=== PATIENT | female | born 1950 | race Caucasian/White ===

== ENCOUNTER → 2018-05-07 09:42 | Outpatient (CLI) | payer MEDICARE, SELFPAY ==
--- NOTE | 2018-05-07 09:48 | CDU_ITS ---
Reason For Study: Carotid bruit Rt. Velocities/BP Lt. Velocities/BP Prox CCA 123.0/17.3 cm/sec. Prox CCA 105.0/16.4 cm/sec. Mid CCA 124.0/18.9 cm/sec. Mid CCA 111.0/21.7 cm/sec. Dist CCA 102.0/23.6 cm/sec. Dist CCA 101.0/21.7 cm/sec. Prox ICA 61.6/14.1 cm/sec. Prox ICA 76.0/20.4 cm/sec. Mid ICA 76.8/19.0 cm/sec. Mid ICA 94.4/23.1 cm/sec. Dist ICA 71.9/19.7 cm/sec. Dist ICA 98.3/28.4 cm/sec. Rt. ICA/CCA = .62. Lt. ICA/CCA = .89. Prox ECA 81.4/7.9 cm/sec. Prox ECA 78.3/9.5 cm/sec. Rt. Vert. 52.8/14.7 cm/sec. Lt. Vert. 47.9/6.3 cm/sec. Right Extracranial There is intimal thickening but no significant atherosclerotic plaque noted in the right common carotid artery. There is heterogeneous, irregular atherosclerotic plaque noted in the right internal carotid artery. There is no significant atherosclerotic plaque noted in the right external carotid artery. Antegrade flow is noted in the right vertebral artery. Left Extracranial There is homogeneous, smooth atherosclerotic plaque noted in the left common carotid artery. There is homogeneous, smooth atherosclerotic plaque noted in the left internal carotid artery. There is no significant atherosclerotic plaque noted in the left external carotid artery. Antegrade flow is noted in the left vertebral artery. Procedure Carotid Duplex [id number]. Exam performed in department. Interpretation Summary Mild (<50%) stenosis right extracranial internal carotid. Mild (<50%) stenosis left extracranial internal carotid. Flow within the vertebral arteries is antegrade bilaterally. Ordering Physician: MARINA CHEN Referring Physician: Marina Chen Performed By: Raysa Tristan RVT
== END ==
LOC: CVS 09:46
PROVIDERS: Family Provider Family Medicine; PCP Family Medicine; Visit Provider Family Medicine
DX: R09.89 Other specified symptoms and signs involving the circulatory and respiratory systems (principal)
CPT/HCPCS: 93880

== ENCOUNTER → 2018-11-25 08:56 | Outpatient (CLI) | payer MEDICARE, SELFPAY ==
--- NOTE | 2018-11-25 11:10 | NEURO ---
NCS and/or EMG Patient Report Ordering Doctor: Mick Leggett DATE OF SERVICE: 11/25/18 David Botello is a 68-year-old female presents for electrodiagnostic testing of the lower limbs. She has numbness and tingling in both legs with intermittent weakness. Electrodiagnostic findings: Peroneal motor nerve demonstrates normal distal latency, amplitude and conduction velocity bilaterally. Normal tibial motor response bilaterally. Normal peroneal tibial F wave. H reflex is borderline prolonged. Borderline prolonged sural latency bilaterally. Prolonged superficial peroneal latency bilaterally. Plantar response is within normal limits. Electrodiagnostic impression: This is an abnormal study in the lower limbs. 1. Electrodiagnostic findings consistent with early polyneuropathy, with primary involvement of sensory nerve fibers. This is likely secondary to diabetes. 2. No electrodiagnostic evidence is noted for lumbosacral radiculopathy. If there are any further questions, please do not hesitate to contact me
== END ==
PROVIDERS: Family Provider Family Medicine; PCP Family Medicine; Referring Provider Family Medicine; Visit Provider Family Medicine
DX: M51.16 Intervertebral disc disorders with radiculopathy, lumbar region (principal)
CPT/HCPCS: 95886; 95912

== ENCOUNTER 2019-02-19 21:41 | Inpatient (IN) | payer MEDICARE, SELFPAY ==
[2019-02-19 21:42] VITALS: BP 146/87; PULSE 74; RESP 17; TEMP 36.9; O2SAT 97; BMI 28.9
--- NOTE | 2019-02-19 21:42 | ED.RN ---
RN CALLED FOR EKG, NO OLD EKGS IN MUSE
--- NOTE | 2019-02-19 21:53 | EKG12_ITS ---
Test Reason : REPEAT CP Blood Pressure : / mmHG Vent. Rate : 064 BPM Atrial Rate : 064 BPM P-R Int : 196 ms QRS Dur : 088 ms QT Int : 438 ms P-R-T Axes : 064 018 086 degrees QTc Int : 451 ms Normal sinus rhythm Nonspecific ST abnormality Abnormal ECG Confirmed by CHACHO LOMAS ([id number]), purchase request editor RHONDA JONES ([id number]) on 02/24/2019 11:35:26 AM Referred By: Rene Turpin Confirmed By:INESSA LOMAS
[2019-02-19 22:07] VITALS: O2SAT 98
[2019-02-19 22:21] LABS: Absolute Neutrophil Count 3.8 X10^3/uL (2.0-7.7); Basophil# 0.06 X10^3/uL; Basophil% 0.8 % (0-1); Eosinophils% 5.3 % (0-5); Hemoglobin 11.9 g/dl (12.0-15.0); Lymphocyte % 34.4 % (19-41); Mean Corp Hgb Conc 33.1 g/gl (32-36); Mean Corpuscular Volume 81.8 fL (81-99); Mean Platelet Vol. 11.2 fl (6.2-12.0); Monocyte% 9.3 % (0-10); Neutrophil # 3.79 X10^3/uL (2.7-7.7); Neutrophil % 50.1 % (47-70); Platelet Count 165 K/mm3 (150-450); RBC Distribution Width CV 13.9 % (11.6-14.6); RBC Distribution Width SD 41.8 fl (35.1-43.9); White Blood Count 7.6 K/mm3 (4.4-11.0)
[2019-02-19 22:22] LABS: POSITIVE COUNT NO; POSITIVE DIFFERENTIAL NO; POSITIVE MORPHOLOGY NO
[2019-02-19 22:32] LABS: Anion Gap 9 (5-15); BUN 16 mg/dL (7-18); BUN/Creat Ratio 19.5 RATIO (10-20); Calcium,Total 8.9 mg/dL (8.5-10.1); Chloride 111 mmol/L (98-107); Creatinine, Serum 0.82 mg/dL (0.55-1.02); EST Glomerular Filtration Rate 73 mL/min (>60); Est Glom Filt Rate - Afr Amer 89 mL/min (>60); Estimated Creatinine Clearance 48.86 ml/min; Glucose 186 mg/dL (74-106); Sodium Level 145 mmol/L (136-145)
[2019-02-19 22:45] VITALS: BP 156/60; PULSE 64; RESP 18; O2SAT 96
--- NOTE | 2019-02-19 22:57 | RAD_ITS ---
STUDY: X-RAY CHEST REASON FOR EXAM: Female, 69 years old. Chest heaviness and tightness TECHNIQUE: Single AP portable view of the chest. COMPARISON: None. FINDINGS: quality assurance monitor body leads are present. The lungs are clear and expanded. There is no demonstrated pleural abnormality. Normal size heart. Normal mediastinum and mark. Normal visualized pulmonary arteries. There are calcified plaques of the aortic arch. There are degenerative changes of the thoracic spine. There is a mild thoracolumbar dextroscoliosis. Normal visualized ribs, clavicles, and shoulders. There is no demonstrated abnormality of the visualized soft tissue structures of the upper abdomen. RAD/Chest 1 View (Portable) IMPRESSION: Calcified plaques of the aortic arch. Degenerative changes of the thoracic spine. Thoracolumbar dextroscoliosis. No acute cardiopulmonary disease process is seen. Electronically Signed: Young Ashley MD at 22:29 EDT , Service support ,
--- NOTE | 2019-02-19 22:57 | EKG12_ITS ---
Test Reason : CP Blood Pressure : / mmHG Vent. Rate : 065 BPM Atrial Rate : 065 BPM P-R Int : 194 ms QRS Dur : 088 ms QT Int : 442 ms P-R-T Axes : 057 012 079 degrees QTc Int : 459 ms Normal sinus rhythm ST & T wave abnormality, consider lateral ischemia Abnormal ECG Confirmed by CHACHO LOMAS ([id number]), editor in chief newspaper RHONDA JONES ([id number]) on 02/24/2019 11:35:43 AM Referred By: Rene Turpin Confirmed By:INESSA LOMAS
[2019-02-19 22:59] VITALS: BP 156/105; PULSE 65
[2019-02-19] MEDS: Enoxaparin 80 MG/0.8 ML Syringe 70 MG SC (22:59)
[2019-02-19] MEDS: Nitroglycerin (INPATIENT USE) 0.4 MG TAB.SUBL SUBLINGUAL (22:59)
[2019-02-19 23:01] VITALS: BP 178/76; PULSE 65; RESP 18; O2SAT 95
--- NOTE | 2019-02-19 23:13 | PCM.HP.STD ---
Problem List (1) Hypertension Status: Chronic (2) Diabetes mellitus type 2 Status: Chronic (3) Dyslipidemia Status: Chronic (4) GERD Status: Chronic (5) Chronic pain Status: Chronic (6) Non-STEMI (non-ST elevated myocardial infarction) Status: Acute History of Present Illness Date of Admission: 02/19/19 Chief Complaint: Chest pain The patient is a 69 year old F with history of hypertension, diabetes mellitus type 2 and dyslipidemia but no previous IA came to ED with shortness of breath on minimal exertion and even dyspnea on rest for last 3 days along with chest pain. Describes chest pain midsternal with radiation to both arm with feeling of numbness and headache. She is also diaphoretic and nauseated. Chest pain and shortness of breath got more persistent today. In ED, heart rate is in 60s and hemodynamically stable. EMS EKG shows normal sinus rhythm at 67 bpm. There is no need for current ST-T ischemic change in EKG in the ED. Troponin 0 0.276. She was started on aspirin, nitroglycerin and Lovenox in the ED. [] Past Medical History Past Medical History (Chronic Problems): Chronic Problems Hypertension (Chronic) Diabetes mellitus type 2 (Chronic) Dyslipidemia (Chronic) GERD (Chronic) Chronic pain (Chronic) Allergies lisinopril Allergy (Verified 02/19/19 21:45) Other cough, throat tightness Sulfa (Sulfonamide Antibiotics) Allergy (Verified 02/19/19 21:45) Rash Home Medications: Ambulatory Orders Medication Instructions Recorded Aspirin 81 mg PO DAILY 02/19/19 Atorvastatin Calcium 20 mg PO DAILY 02/19/19 Glipizide 10 mg PO BID 02/19/19 Insulin NPH Human Isophane 5 unit SC BREAKFAST 02/19/19 [Novolin N] Insulin NPH Human Isophane 15 unit SC DINNER 02/19/19 [Novolin N] Metformin HCl 1,000 mg PO BID 02/19/19 Metoprolol Tartrate [Lopressor 25 mg PO BID 02/19/19 (beta josh)] Multiple Vitamin 1 tab PO DAILY 02/19/19 Nabumetone 750 mg PO BID 02/19/19 Omeprazole 40 mg PO DAILY 02/19/19 Oxybutynin [Ditropan] 2.5 mg PO BID 02/19/19 Tizanidine HCl 2 mg PO DAILY 02/19/19 Smoking Status: Never smoker - *Family History Paternal History Items: Heart Disease - Father had IA at age of 85. Has multiple stents. Review of Systems Constitutional: Denies: Chills, Fever, Weight Change HEENT: Denies: Head Aches, Sinus Congestion, Sinus Drainage Cardiovascular: Reports: Chest Pressure - Chest pain feels like a pressure. Denies: Chest Pain, Palpitations Respiratory: Reports: Shortness of Breath, Shortness of breath at rest, Shortness of breath upon exertion. Denies: Cough, Sputum production Gastrointestinal: Reports: Nausea. Denies: Abdominal Pain, Vomiting Genitourinary: Denies: Dysuria, Frequency Musculoskeletal: Reports: Back Pain, Joint Pain. Denies: Joint Tenderness Skin: Denies: Rash, Wounds Neurological: Denies: Numbness, Tingling, Focal weakness Psychiatric: Denies: Anxiety, Depression, Homicidal Ideations, Suicidal Ideations Hematologic/ Lymphatic: Denies: Easy Bruising, Easy Bleeding VTE Information - Inpt Only VTE Present on Admission: No VTE Mechan Device Prophylaxis: None Reason prophylaxis not ordered:: Procedure Not Indicated - Patient is on therapeutic Lovenox ACS Patient Problems: Active and Suspected Problems Non-STEMI (non-ST elevated myocardial infarction) (Acute) - Physical Exam General: Alert, Oriented x3, Cooperative HEENT: Atraumatic, PERRLA, EOMI, Normocephalic Neck: Supple, No JVD, Negative Carotid Bruits Lungs: Clear to auscultation, Normal air movement, No rhonchi, No wheeze, No rales Cardiovascular: Regular rate, Regular Rhythm, Normal S1, Normal S2, No murmurs Abdomen: Bowel Sounds Present, Soft, Non Tender, Non-Distended Extremities: No edema, Capillary Refill Less than 3 Seconds Skin: No rashes, No breakdown Musculoskeletal: No Tenderness to Palpation of Joints or Extremities, Arthritic Changes, Tenderness Lymphatic: No Cervical, Supraclavicular, or Inguinal Adenopathy Neurological: Cranial nerves II-XII grossly intact, Deep Tendon Reflexes 2+/4 and Symmetrical, Neuro grossly intact Psych/Mental Status: Normal Affect, Appropriate Vital Signs Temp Pulse Resp BP Pulse Ox 98.4 F 65 18 178/76 H 95 02/19/19 21:42 02/19/19 23:01 02/19/19 23:01 02/19/19 23:01 02/19/19 23:01 Oxygen Delivery Method Room Air Weight: 153 lb 3.54 oz Body Mass Index (BMI) 28.9 Laboratory Tests Past 24 Hrs 02/19/19 02/19/19 22:00 22:00 WBC 7.6 RBC 4.40 Hgb 11.9 L Hct 36.0 L MCV 81.8 MCH 27.0 MCHC 33.1 RDW 13.9 RDW Differential 41.8 Plt Count 165 MPV 11.2 Immature Gran % (Auto) 0.100 Neut % (Auto) 50.1 Lymph % (Auto) 34.4 [place] % (Auto) 9.3 Eos % (Auto) 5.3 H Baso % (Auto) 0.8 Absolute Neuts (auto) 3.8 Absolute Lymphs (auto) 2.60 Total Counted Not Reportable Sodium 145 Potassium 4.0 Chloride 111 H Carbon Dioxide 25.0 Anion Gap 9 BUN 16 Creatinine 0.82 Estim Creat Clear Calc 48.86 Est GFR (MDRD) Af Amer 89 Est GFR (MDRD) Non-Af 73 BUN/Creatinine Ratio 19.5 Glucose 186 H Calcium 8.9 Troponin I 0.276 H Assessment/Plan All Active Problems Non-STEMI (non-ST elevated myocardial infarction) (Acute) The patient is a 69 year old F with history of hypertension, diabetes mellitus type 2 and dyslipidemia but no previous IA came to ED with shortness of breath on minimal exertion and even dyspnea on rest for last 3 days along with chest pain. Describes chest pain midsternal with radiation to both arm with feeling of numbness and headache. She is also diaphoretic and nauseated. Chest pain and shortness of breath got more persistent today. In ED, heart rate is in 60s and hemodynamically stable. EMS EKG shows normal sinus rhythm at 67 bpm. There is no need for current ST-T ischemic change in EKG in the ED. Troponin 0 0.276. She was started on aspirin, nitroglycerin and Lovenox in the ED. 1. Non-STEMI: Patient has typical anginal symptoms. Started with loading dose of Plavix, baby aspirin and Lovenox 1 mg/kg body weight twice daily. Pharmacy Intake Coordinator Dr. Gonzalez informed and consulted. Coreg 6.25 mg twice daily. Atorvastatin and nitroglycerin ointment. Patient is allergic to lisinopril. patient had brief history of flutter waves possible one-time transient A. fib/flutter. Patient is not on anticoagulant but on metoprolol. [] 2. Diabetes mellitus type 2: On Accu-Chek before meals and at bedtime and cover with Humalog sliding scale insulin. Continue home dose of NPH insulin and glipizide. A1c tomorrow a.m. 3. Hypertension and dyslipidemia: Fasting profile tomorrow a.m. TSH tomorrow a.m.: 4. Chronic back pain, urinary incontinence: Patient is on NSAIDs which is discontinued. Continue Zanaflex and oxybutynin. DVT prophylaxis: Patient on therapeutic dose of Lovenox. Code Visit Inpatient E&M: 89032 Init Hosp L3
--- NOTE | 2019-02-19 23:16 | ED.DCSUM_ITS ---
- ER Visit Summary Date of Service: 02/19/19 Chief Complaint: [Chest pain] History of Present Illness: The patient is a 69 F [presents the emergency department chest pain that started 3 days ago. Patient states that she is had intermittent discomfort especially with activity and exertion. Patient states t hat symptoms typically improve with rest. Currently rates pain a 4 out of 10. Patient called the squad when her pain would not go away since about noon today. Patient was given aspirin and nitroglycerin tablet which seemed to help ease her pain. Patient describes the pain radiating into both arms at times. Patient describes diaphoresis and nausea. Patient complains of exertional dyspnea. Patient has history of hypertension, diabetes, and high cholesterol. She has no cardiac history. Last stress test was more than 10 years ago.] Physical Examination: [HEENT-PERRLA, EOMI. Cranial nerves II through XII grossly intact. TMs clear. Mucous membranes moist. No adenopathy. Cardiovascular-regular rate and rhythm without murmur or ectopy Lungs-clear to auscultation, chest wall stable without crepitus or subcu emphysema Abdomen-normoactive bowel sounds, soft, nontender, no rebound or rigidity, no peritoneal signs. Extremities-intact ?4, normal range of motion, normal pulses, atraumatic] Test Results: [Anterior laterally with some subtle depression of the ST segments. Repeat EKG an hour after the initial EKG is unchanged. CBC with d ifferential 7.6, hemoglobin 11.9, hematocrit 36, platelets 165. History is unremarkable. Troponin was elevated 0.276. Chest x-ray showed nothing acute.] Emergency Department Course and Treatment: [Patient received nitroglycerin tablets and was started on normal saline at maintenance. Patient given 1 dose of subcutaneous Lovenox.] Treatment Plan: [Admit] Disposition: [Admit] Impression: [Non-ST elevation [place] Acute coronary syndrome This note was generated with [employer] dictation software. It may contain incorrect words, spelling, and punctuation that were not noted in review of the chart prior to signing ED Disposition - Plan for ED Patient: Referrals: Mick Leggett MD [Primary Care Provider] -
[2019-02-19 23:44] VITALS: PULSE 60; BMI 29.0; BMI 29.7
[2019-02-20] VITALS (34 sets, daily range): BP systolic 112–167; BP diastolic 55–88; PULSE 55–83; RESP 13–22; TEMP 36.2–36.8; O2SAT 95–100
[2019-02-20] MEDS: Clopidogrel Bisulfate 300 MG Tablet PO (00:44)
[2019-02-20] MEDS: Nitroglycerin Oint 1 INCH PACKET TRANSDERM. ×2 (00:51→06:00)
[2019-02-20 04:33] LABS: Hematocrit 35.5 % (37-47); Hemoglobin 11.6 g/dl (12.0-15.0); Mean Corp Hgb Conc 32.7 g/gl (32-36); Mean Corpuscular Hgb 26.8 pg (27.0-32.0); Mean Platelet Vol. 11.1 fl (6.2-12.0); Platelet Count 152 K/mm3 (150-450); RBC Distribution Width CV 13.9 % (11.6-14.6); RBC Distribution Width SD 40.9 fl (35.1-43.9); Red Blood Count 4.33 M/mm3 (4.2-5.4); White Blood Count 7.2 K/mm3 (4.4-11.0)
[2019-02-20 04:35] LABS: Scan Indicated on CBC? Y/N NO
[2019-02-20 04:59] LABS: Cholesterol 106 mg/dL (200); High Density Lipoprotein 42 mg/dL; Thyroid Stim Hormone (TSH) 1.23 uIU/mL (0.358-3.74); Triglycerides 146 mg/dL; Very Low Density Lipoprotein 29 mg/dL (5-40)
--- NOTE | 2019-02-20 05:40 | EKG12_ITS ---
Test Reason : AM EKG Blood Pressure : / mmHG Vent. Rate : 062 BPM Atrial Rate : 062 BPM P-R Int : 202 ms QRS Dur : 092 ms QT Int : 452 ms P-R-T Axes : 064 016 091 degrees QTc Int : 458 ms Normal sinus rhythm Nonspecific ST and T wave abnormality Abnormal ECG When compared with ECG of 20-FEB-2019 00:04, MANUAL COMPARISON REQUIRED, DATA IS UNCONFIRMED Confirmed by DUNIA CARDENAS, LUIS ([id number]), marketing editor RHONDA JONES ([id number]) on 03/01/2019 2:43:01 PM Referred By: Rene Turpin Confirmed By:LUIS DUQUE MD
[2019-02-20 05:43] LABS: Bacteria 0 SEEN /hpf (None Seen); Mucous, Urine 0 SEEN /hpf (<or=2+); Red Blood Cells-Urine 0 SEEN /hpf (0-5)
[2019-02-20 05:54] LABS: Color, Urine Yellow (Yellow); Glucose, Dipstick Normal (Normal); Ketone-Dipstick Negative (Negative); Leukocyte Esterase-Dipstick Negative /ul (Negative); Nitrite-Dipstick Negative (Negative); Occult Blood-Urine Negative /ul (Negative); Protein-Dipstick Negative (Negative); Urine Bilirubin Dipstick Negative (Negative); Urine Clarity Clear (Clear); Urine Urobilinogen Normal (Normal)
[2019-02-20 05:56] LABS: Squamous Epithelial Cells - UA 0-5 SEEN /hpf (5-10)
[2019-02-20 05:57] LABS: White Blood Cells 0-5 SEEN /hpf (0-5)
[2019-02-20 07:00] LABS: Bedside Glucose 159 mg/dL (70-110)
[2019-02-20] MEDS: Insulin NPH Human 100 UNITS/ML PEN SC (08:20)
[2019-02-20] MEDS: glipiZIDE 10 MG Tablet PO ×2 (08:20→16:51)
[2019-02-20] MEDS: Oxybutynin 5 MG Tablet 2.5 MG PO ×2 (08:21→21:43)
[2019-02-20] MEDS: Multivitamins,Therapeutic Tablet 1 TABLET PO (08:21)
[2019-02-20] MEDS: Carvedilol 6.25 MG Tablet PO ×2 (08:21→21:42)
[2019-02-20] MEDS: Clopidogrel Bisulfate 75 MG Tablet PO (08:21)
[2019-02-20] MEDS: Enoxaparin 80 MG/0.8 ML Syringe 70 MG SC (08:21)
[2019-02-20] MEDS: Pantoprazole Sodium 40 MG Tablet PO (08:22)
[2019-02-20] MEDS: tiZANidine HCl 2 MG Tablet PO (08:22)
[2019-02-20] MEDS: Insulin Lispro 100 UNIT/ML INSULN.PEN SQ ×4 (08:34→22:02)
--- NOTE | 2019-02-20 10:32 | PN_ITS ---
<Baylee Abel - Last Filed: 02/20/19 10:32> Patient Problems: Active and Suspected Problems Non-STEMI (non-ST elevated myocardial infarction) (Acute) Subjective: Patient seen and examined. She reports chest pain and shortness of breath with minimal exertion which resolves with rest. Complains of associated diaphoresis and overall fatigue as well. - Physical Exam General: Alert, Oriented x3, Cooperative HEENT: Atraumatic, PERRLA, EOMI, Normocephalic Neck: Supple, No JVD, Negative Carotid Bruits Lungs: Clear to auscultation, Normal air movement Cardiovascular: Regular rate, Regular Rhythm, Normal S1, Normal S2, No murmurs Abdomen: Bowel Sounds Present, Soft, Non Tender, Non-Distended Extremities: No clubbing, No cyanosis, No edema Skin: No rashes, No breakdown Musculoskeletal: No Tenderness to Palpation of Joints or Extremities Neurological: Cranial nerves II-XII grossly intact, Neuro grossly intact Psych/Mental Status: Normal Affect, Appropriate Vital Signs Temp Pulse Resp BP Pulse Ox 98.3 F 55 L 16 154/59 H 95 02/20/19 08:07 02/20/19 08:07 02/20/19 08:07 02/20/19 08:07 02/20/19 08:07 Oxygen Delivery Method Room Air Weight: 153 lb 14.122 oz Body Mass Index (BMI) 29.0 Intake and Output for Last 24 Hours 02/18/19 02/19/19 02/20/19 23:59 23:59 23:59 Intake Total 150 / 150 Output Total 350 / 350 Balance -200 / -200 Laboratory Tests Past 24 Hrs 02/19/19 02/19/19 02/20/19 22:00 22:00 00:30 WBC 7.6 RBC 4.40 Hgb 11.9 L Hct 36.0 L MCV 81.8 MCH 27.0 MCHC 33.1 RDW 13.9 RDW Differential 41.8 Plt Count 165 MPV 11.2 Immature Gran % (Auto) 0.100 Neut % (Auto) 50.1 Lymph % (Auto) 34.4 [place] % (Auto) 9.3 Eos % (Auto) 5.3 H Baso % (Auto) 0.8 Absolute Neuts (auto) 3.8 Absolute Lymphs (auto) 2.60 Total Counted Not Reportable Sodium 145 Potassium 4.0 Chloride 111 H Carbon Dioxide 25.0 Anion Gap 9 BUN 16 Creatinine 0.82 Estim Creat Clear Calc 48.86 Est GFR (MDRD) Af Amer 89 Est GFR (MDRD) Non-Af 73 BUN/Creatinine Ratio 19.5 Glucose 186 H Calcium 8.9 Magnesium Troponin I 0.276 H Triglycerides Cholesterol LDL Cholesterol VLDL Cholesterol HDL Cholesterol TSH Urine Color Yellow Urine Clarity Clear Urine pH 7.0 Ur Specific [place] 1.010 Urine Protein Negative Urine Glucose (UA) Normal Urine Ketones Negative Urine Occult Blood Negative Urine Nitrite Negative Urine Bilirubin Negative Urine Urobilinogen Normal Ur Leukocyte Esterase Negative Urine RBC 0 SEEN Urine WBC 0-5 SEEN Ur Squamous Epith Cells 0-5 SEEN Urine Bacteria 0 SEEN Urine Mucus 0 SEEN 02/20/19 02/20/19 02/20/19 01:16 04:16 04:16 WBC 7.2 RBC 4.33 Hgb 11.6 L Hct 35.5 L MCV 82.0 MCH 26.8 L MCHC 32.7 RDW 13.9 RDW Differential 40.9 Plt Count 152 MPV 11.1 Immature Gran % (Auto) Neut % (Auto) Lymph % (Auto) [place] % (Auto) Eos % (Auto) Baso % (Auto) Absolute Neuts (auto) Absolute Lymphs (auto) Total Counted Sodium Potassium Chloride Carbon Dioxide Anion Gap BUN Creatinine Estim Creat Clear Calc Est GFR (MDRD) Af Amer Est GFR (MDRD) Non-Af BUN/Creatinine Ratio Glucose Calcium Magnesium 2.0 Troponin I 0.843 H* Triglycerides 146 Cholesterol 106 LDL Cholesterol 35 VLDL Cholesterol 29 HDL Cholesterol 42 TSH 1.23 Urine Color Urine Clarity Urine pH Ur Specific [place] Urine Protein Urine Glucose (UA) Urine Ketones Urine Occult Blood Urine Nitrite Urine Bilirubin Urine Urobilinogen Ur Leukocyte Esterase Urine RBC Urine WBC Ur Squamous Epith Cells Urine Bacteria Urine Mucus 02/20/19 04:16 WBC RBC Hgb Hct MCV MCH MCHC RDW RDW Differential Plt Count MPV Immature Gran % (Auto) Neut % (Auto) Lymph % (Auto) [place] % (Auto) Eos % (Auto) Baso % (Auto) Absolute Neuts (auto) Absolute Lymphs (auto) Total Counted Sodium Potassium Chloride Carbon Dioxide Anion Gap BUN Creatinine Estim Creat Clear Calc Est GFR (MDRD) Af Amer Est GFR (MDRD) Non-Af BUN/Creatinine Ratio Glucose Calcium Magnesium Troponin I 1.850 H* Triglycerides Cholesterol LDL Cholesterol VLDL Cholesterol HDL Cholesterol TSH Urine Color Urine Clarity Urine pH Ur Specific [place] Urine Protein Urine Glucose (UA) Urine Ketones Urine Occult Blood Urine Nitrite Urine Bilirubin Urine Urobilinogen Ur Leukocyte Esterase Urine RBC Urine WBC Ur Squamous Epith Cells Urine Bacteria Urine Mucus POC Glucose 02/20/19 06:51 POC Glucose 159 H Medical Necessity - Tobacco Use Smoking Status: Never smoker Tobacco Use: Non-smoker Assessment/Plan All Active Problems Non-STEMI (non-ST elevated myocardial infarction) (Acute) 1. Unstable angina/NSTEMI-EKG without ischemic changes. Continue Plavix, statin, carvedilol, therapeutic Lovenox, Nitropaste. Cardiology consulted. 2. Type 2 diabetes mellitus-hold metformin regimen. Continue glipizide regimen. Continue home scheduled insulin regimen. Accu-Cheks ACHS with sliding scale insulin. Check hemoglobin A1C. 3. Hypertension-Home metoprolol regimen changed to carvedilol 6.25 mg p.o. twice daily. Mildly above goal, continue to monitor and add additional agent per cardiology recommendation. 4. Hyperlipidemia-continue statin. 5. Chronic back pain-continue Zanaflex regimen. 6. Urinary incontinence-continue oxybutynin regimen. 7. GERD-continue PPI. DVT prophylaxis-therapeutic Lovenox This patient was seen by SCAR Russell under the supervision of Dr. Elena. <Rom Elena F - Last Filed: 02/20/19 12:41> - Physical Exam Vital Signs Temp Pulse Resp BP Pulse Ox 98.3 F 61 16 154/59 H 95 02/20/19 08:07 02/20/19 12:05 02/20/19 08:07 02/20/19 08:07 02/20/19 08:07 Oxygen Delivery Method Room Air Weight: 153 lb 14.122 oz Body Mass Index (BMI) 29.0 Intake and Output for Last 24 Hours 02/18/19 02/19/19 02/20/19 23:59 23:59 23:59 Intake Total 150 / 150 Output Total 350 / 350 Balance -200 / -200 Laboratory Tests Past 24 Hrs 02/19/19 02/19/19 02/20/19 22:00 22:00 00:30 WBC 7.6 RBC 4.40 Hgb 11.9 L Hct 36.0 L MCV 81.8 MCH 27.0 MCHC 33.1 RDW 13.9 RDW Differential 41.8 Plt Count 165 MPV 11.2 Immature Gran % (Auto) 0.100 Neut % (Auto) 50.1 Lymph % (Auto) 34.4 [place] % (Auto) 9.3 Eos % (Auto) 5.3 H Baso % (Auto) 0.8 Absolute Neuts (auto) 3.8 Absolute Lymphs (auto) 2.60 Total Counted Not Reportable Sodium 145 Potassium 4.0 Chloride 111 H Carbon Dioxide 25.0 Anion Gap 9 BUN 16 Creatinine 0.82 Estim Creat Clear Calc 48.86 Est GFR (MDRD) Af Amer 89 Est GFR (MDRD) Non-Af 73 BUN/Creatinine Ratio 19.5 Glucose 186 H Hemoglobin A1c Calcium 8.9 Magnesium Troponin I 0.276 H Triglycerides Cholesterol LDL Cholesterol VLDL Cholesterol HDL Cholesterol TSH Urine Color Yellow Urine Clarity Clear Urine pH 7.0 Ur Specific [place] 1.010 Urine Protein Negative Urine Glucose (UA) Normal Urine Ketones Negative Urine Occult Blood Negative Urine Nitrite Negative Urine Bilirubin Negative Urine Urobilinogen Normal Ur Leukocyte Esterase Negative Urine RBC 0 SEEN Urine WBC 0-5 SEEN Ur Squamous Epith Cells 0-5 SEEN Urine Bacteria 0 SEEN Urine Mucus 0 SEEN 02/20/19 02/20/19 02/20/19 01:16 04:16 04:16 WBC 7.2 RBC 4.33 Hgb 11.6 L Hct 35.5 L MCV 82.0 MCH 26.8 L MCHC 32.7 RDW 13.9 RDW Differential 40.9 Plt Count 152 MPV 11.1 Immature Gran % (Auto) Neut % (Auto) Lymph % (Auto) [place] % (Auto) Eos % (Auto) Baso % (Auto) Absolute Neuts (auto) Absolute Lymphs (auto) Total Counted Sodium Potassium Chloride Carbon Dioxide Anion Gap BUN Creatinine Estim Creat Clear Calc Est GFR (MDRD) Af Amer Est GFR (MDRD) Non-Af BUN/Creatinine Ratio Glucose Hemoglobin A1c Calcium Magnesium 2.0 Troponin I 0.843 H* Triglycerides 146 Cholesterol 106 LDL Cholesterol 35 VLDL Cholesterol 29 HDL Cholesterol 42 TSH 1.23 Urine Color Urine Clarity Urine pH Ur Specific [place] Urine Protein Urine Glucose (UA) Urine Ketones Urine Occult Blood Urine Nitrite Urine Bilirubin Urine Urobilinogen Ur Leukocyte Esterase Urine RBC Urine WBC Ur Squamous Epith Cells Urine Bacteria Urine Mucus 02/20/19 02/20/19 04:16 04:16 WBC RBC Hgb Hct MCV MCH MCHC RDW RDW Differential Plt Count MPV Immature Gran % (Auto) Neut % (Auto) Lymph % (Auto) [place] % (Auto) Eos % (Auto) Baso % (Auto) Absolute Neuts (auto) Absolute Lymphs (auto) Total Counted Sodium Potassium Chloride Carbon Dioxide Anion Gap BUN Creatinine Estim Creat Clear Calc Est GFR (MDRD) Af Amer Est GFR (MDRD) Non-Af BUN/Creatinine Ratio Glucose Hemoglobin A1c 7.5 H Calcium Magnesium Troponin I 1.850 H* Triglycerides Cholesterol LDL Cholesterol VLDL Cholesterol HDL Cholesterol TSH Urine Color Urine Clarity Urine pH Ur Specific [place] Urine Protein Urine Glucose (UA) Urine Ketones Urine Occult Blood Urine Nitrite Urine Bilirubin Urine Urobilinogen Ur Leukocyte Esterase Urine RBC Urine WBC Ur Squamous Epith Cells Urine Bacteria Urine Mucus POC Glucose 02/20/19 02/20/19 12:14 06:51 POC Glucose 264 H 159 H Code Visit Addendum: Dr. Elena I personally examined the patient and reviewed the chart. I agree with the above. 69-year-old female presenting with chest pain with activity. She was found to have elevated troponins peaking at 1.85. Cardiology was consulted recommending a cardiac cath in the morning for further evaluation of his chest pain and possible stent. She states that when she lies still in bed she has no chest pain however if she is minimally active even with just walked to the bathroom her chest pain returns. Inpatient E&M: 49952 Subs Hosp L2
[2019-02-20 10:58] LABS: Hemoglobin A1c 7.5 % (4.2-6.3)
--- NOTE | 2019-02-20 11:46 | PCM.CONS.C ---
Problem List (1) Non-STEMI (non-ST elevated myocardial infarction) Status: Acute Reason for Consult Date of Consultation: 02/20/19 History of Present Illness: The patient is a 69 year old F with past medical history significant for diabetes mellitus and hypertension. She presented to the emergency room with complaints of anterior chest burning with discomfort to bilateral shoulders with activity over the last few days. Is associated with shortness of breath and diaphoresis. This came on with exertion and was relieved with rest. However yesterday she had a prolonged episode which did not improve with rest. She subsequently sought help in the emergency room. Here in the hospital, the patient has been feeling much better. She still has her chest symptoms but with exertion only. No rest symptoms. She denies any previous cardiac history. Denies any orthopnea or PND. She also describes a couple of episodes of palpitations lasting a few seconds that happened yesterday. [] Past Medical History Allergies/Adverse Reactions: Allergies lisinopril Allergy (Verified 02/19/19 21:45) Other cough, throat tightness Sulfa (Sulfonamide Antibiotics) Allergy (Verified 02/19/19 21:45) Rash Home Medications: Ambulatory Orders Medication Instructions Recorded Aspirin 81 mg PO DAILY 02/19/19 Atorvastatin Calcium 20 mg PO DAILY 02/19/19 Glipizide 10 mg PO BID 02/19/19 Insulin NPH Human Isophane 5 unit SC BREAKFAST 02/19/19 [Novolin N] Insulin NPH Human Isophane 15 unit SC DINNER 02/19/19 [Novolin N] Metformin HCl 1,000 mg PO BID 02/19/19 Metoprolol Tartrate [Lopressor 25 mg PO BID 02/19/19 (beta josh)] Multiple Vitamin 1 tab PO DAILY 02/19/19 Nabumetone 750 mg PO BID 02/19/19 Omeprazole 40 mg PO DAILY 02/19/19 Oxybutynin [Ditropan] 2.5 mg PO BID 02/19/19 Tizanidine HCl 2 mg PO DAILY 02/19/19 Past Medical History (Chronic Problems): Chronic Problems Hypertension (Chronic) Diabetes mellitus type 2 (Chronic) Dyslipidemia (Chronic) GERD (Chronic) Chronic pain (Chronic) - *Family History Paternal History Items: Heart Disease - Father had [place] at age of 85. Has multiple stents. Smoking Status: Never smoker Tobacco Use: Non-smoker Review of Systems - Review of Systems General: Denies: Fever, Chills HEENT: Denies: Blurred Vision, Head Aches Cardiovascular: Reports: Chest Discomfort, Chest Discomfort with Exertion, Shortness of Breath with Exertion, Palpitations. Denies: Orthopnea, PND, Peripheral Edema, Lightheadedness, Dizziness, Near Syncope, Syncope Gastrointestinal: Denies: Abdominal Discomfort, Jaundice, Nausea, Emesis, Hematemesis, Melena Neurological: Denies: History of TIA, History of CVA Endocrine: Denies: Heat Intolerance, Cold Intolerance Hematologic/ Lymphatic: Denies: Easy Brusing, Easy Bleeding Subjectve: Comfortable. No apparent distress. Objective: Vital Signs Temp Pulse Resp BP Pulse Ox 98.3 F 55 L 16 154/59 H 95 02/20/19 08:07 02/20/19 08:07 02/20/19 08:07 02/20/19 08:07 02/20/19 08:07 Oxygen Delivery Method Room Air Weight: 69.8 kg Body Mass Index (BMI) 29.0 Intake and Output for Last 24 Hours 02/18/19 02/19/19 02/20/19 23:59 23:59 23:59 Intake Total 150 / 150 Output Total 350 / 350 Balance -200 / -200 General: Healthy Appearing, Awake, Oriented x 3 HEENT: Atraumatic, Normocephalic Neck: Supple, No JVD Lungs: Clear to auscultation Cardiovascular: Regular Rhythm, Normal S1, Normal S2, No Murmurs, No Rubs, No Gallops Vascular: No Carotid Bruits Abdomen: Bowel Sounds Present, Soft, Non Tender Neurological: No Focal Motor or Sensory Deficit, CN II-XII Intact Psych/Mental Status: Appropriate 02/19/19 22:00: WBC 7.6, RBC 4.40, Hgb 11.9 L, Hct 36.0 L, MCV 81.8, MCH 27.0, MCHC 33.1, RDW 13.9, RDW Differential 41.8, Plt Count 165, MPV 11.2, Immature Gran % (Auto) 0.100, Neut % (Auto) 50.1, Lymph % (Auto) 34.4, [place] % (Auto) 9.3, Eos % (Auto) 5.3 H, Baso % (Auto) 0.8, Absolute Neuts (auto) 3.8, Total Counted Not Reportable 02/19/19 22:00: Sodium 145, Potassium 4.0, Chloride 111 H, Carbon Dioxide 25.0, Anion Gap 9, BUN 16, Creatinine 0.82, Est GFR (MDRD) Af Amer 89, Est GFR (MDRD) Non-Af 73, BUN/Creatinine Ratio 19.5, Glucose 186 H, Calcium 8.9, Troponin I 0.276 H 02/20/19 00:30: Urine Color Yellow, Urine Clarity Clear, Urine pH 7.0, Ur Specific [place] 1.010, Urine Protein Negative, Urine Glucose (UA) Normal, Urine Ketones Negative, Urine Occult Blood Negative, Urine Nitrite Negative, Urine Bilirubin Negative, Urine Urobilinogen Normal, Ur Leukocyte Esterase Negative, Urine RBC 0 SEEN, Urine WBC 0-5 SEEN 02/20/19 01:16: Troponin I 0.843 H* 02/20/19 04:16: WBC 7.2, RBC 4.33, Hgb 11.6 L, Hct 35.5 L, MCV 82.0, MCH 26.8 L, MCHC 32.7, RDW 13.9, RDW Differential 40.9, Plt Count 152, MPV 11.1 02/20/19 04:16: Magnesium 2.0, Triglycerides 146, Cholesterol 106, LDL Cholesterol 35, VLDL Cholesterol 29, HDL Cholesterol 42 02/20/19 04:16: Troponin I 1.850 H* 02/20/19 04:16: Hemoglobin A1c 7.5 H Rhythm: Normal sinus rhythm EKG: Normal sinus rhythm. No acute ischemic changes. ECHO: Stress Test: Cardiac Cath: PCI: CT Surgery: Holter monitor: EPS: PPM: CXR: Chest CT Scan: Assessment/Plan 1. Non-ST elevation myocardial infarction. Still with residual exertional angina. On Lovenox, aspirin and Plavix. Also on beta-blockers. Will discontinue Nitropaste and start on nitroglycerin infusion to titrate to systolic blood pressure around 110 mmHg. Options discussed with patient. Coronary angiography with cardiac catheterization and possible revascularization recommended. Risks benefits and alternatives explained. She understands these and wishes to proceed. We will schedule her for cardiac catheterization. 2. Hypertension. Start on nitroglycerin infusion as noted above. Continue beta-blockers. Next 3. Diabetes mellitus. 4. Dyslipidemia.
[2019-02-20 12:21] LABS: Bedside Glucose 264 mg/dL (70-110)
[2019-02-20] MEDS: Nitroglycerin Infusion 250 ML 3 MG CONT INF (13:29)
[2019-02-20] MEDS: 0.9% NaCl Peripheral Flush Adult/Peds IV (13:29)
--- NOTE | 2019-02-20 15:50 | CM.UR ---
RN CM Assessment Met face to face with patient for initial transition planning/care coordination assessment. Introduced myself and my role. Verb understanding and agreement for assessment. Presentation: Chest pain x 3 days. Nstemi PCP: Oleksandr Specialists: none Preferred Pharmacy: [facility] mail order; [facility] in [place]. Insurance: [employer] Prescription Benefit: yes. States able to afford meds. States most she gets through mail order are $0. gets her insulin & supplies from [facility] and it is $37 for 3 month supply. LNOK: [place], . However he is disabled and w/c bound. Home: Apartment. Live on 3rd floor but they have elevator. ADLs: Self. Independent with her ADLs and does everything around house and cares for her however things are getting more difficult d/t her neuropathy and now this. Transportation: she drives. 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 Declined additional education at this time. States she is aware and plans on doing them in near future. DC PLAN: Home. ? needs. States will need help with her . Encouraged her to call [facility] to see if they can give additional assistance in home for vet. Verb understanding. Timbo Robins RN, CCM. Timbo Robins RN, CCM.
[2019-02-20] MEDS: Insulin NPH Human 100 UNITS/ML PEN 15 UNITS SC (16:52)
[2019-02-20 17:00] LABS: Bedside Glucose 186 mg/dL (70-110)
--- NOTE | 2019-02-20 17:46 | EKG12_ITS ---
Test Reason : CP Blood Pressure : / mmHG Vent. Rate : 070 BPM Atrial Rate : 070 BPM P-R Int : 186 ms QRS Dur : 078 ms QT Int : 412 ms P-R-T Axes : 062 016 114 degrees QTc Int : 444 ms Normal sinus rhythm Nonspecific ST and T wave abnormality Abnormal ECG When compared with ECG of 20-FEB-2019 05:50, MANUAL COMPARISON REQUIRED, DATA IS UNCONFIRMED Confirmed by DUNIA CARDENAS, LUIS ([id number]), field map editor RHONDA JONES ([id number]) on 03/01/2019 2:42:35 PM Referred By: Rene Turpin Confirmed By:LUIS DUQUE MD
--- NOTE | 2019-02-20 19:05 | NURSING ---
Report called to Arlin in [facility].
[2019-02-20] MEDS: Nitroglycerin (INPATIENT USE) 0.4 MG TAB.SUBL SUBLINGUAL (19:27)
--- NOTE | 2019-02-20 21:01 | PCM.PN.BLA ---
Progress Note Patient developed rest angina at this evening. I advised urgent coronary angiography and possible revascularization. After obtaining informed consent, the procedure was undertaken. Please see cath report for details. 99% lesion in the mid left circumflex. Treated with 2.75 x 18 mm resolute drug-eluting stent. Postdilated with 3.0 mm balloon. 70 to 80% lesion in the proximal and mid right coronary artery. Treated with 2.5 x 38 mm Synergy drug-eluting stent, postdilated using 3.0 mm balloon. Excellent results were noted. Stop Plavix. Start on Brilinta. If patient is asymptomatic in the morning, may be discharged home.
[2019-02-20 21:11] LABS: ACT Activated Clotting Time 263 sec (74-137)
[2019-02-20 21:11] LABS: ACT Activated Clotting Time 252 sec (74-137)
[2019-02-20 21:11] LABS: ACT Activated Clotting Time 257 sec (74-137)
--- NOTE | 2019-02-20 21:19 | CL.I_ITS ---
Patient Name: NOREEN DOUGLASS Study Date: 02/20/2019 Performing: Susan Gonzalez MD Ht: 61.02 inches 155 cm : 1950 Wt: 154.32 lbs 70 kg Age: 69 Gender: female BSA: 1.69 PROCEDURE(S) PERFORMED HI49-OXV/COR/LV [id number]-MLU W OR WO PTCA, SINGLE CORONARY ARTERY [id number] W OR WO PTCA, SINGLE CORONARY ARTERY CLINICAL PROFILE AND CO-MORBIDITIES Heart Failure: None Angina Classification Anginal Classification w/in 2 Weeks: CCS IV CAD Presentations: Non-STEMI. Symptom onset Date/Time: 02/19/2019 Time Not Available CONCLUSIONS 99% Mid LCX 30% Prox LAD, calcific LVEF 65% Calcified Aortic Arch Successful PTCA/MICHELLE Mid LCX using Resolute Integrity 2.75x18 mm, post-dilated using 3.0 mm balloon RECOMMENDATIONS ASA Indefinitley Brilinta for at least 12 months Risk factor modification DESCRIPTION OF PROCEDURE The patient arrived to the procedure lab. The risks and benefits of the procedure as well as a full d escription of our services here and lack of surgical backup were fully explained to the patient and/o r their significant other prior to the catheterization. The Timeout was completed, verifying the marlena ect patient and procedure. The patient's procedural site was prepped and draped in the usual fashion. Local anesthetic was given subcutaneously to right radial region with Lidocaine 2%. Using a modified Seldinger technique, arterial access was obtained via the right radial artery, a 6Fr sheath was inse rted.. Left Coronary Artery selective angiography was performed in multiple views using a 5 Fr. 4.0 [place] catheter. Right Coronary Artery selective angiography was then performed in multiple views usin g a 5 Fr. 4.0 [place] catheter. Left Ventriculography was performed in VERDE projection using a 5 Fr. Pig tail catheter. LV to AO pullback pressures were then recordedThe images were reviewed and options discussed. A decision was then made to proceed with an Intervention, IVUS or other adjunct pr ocedure. xbt 2.5 Guide catheter was inserted and engaged into the LCA. runthrough Guide wire was advanced to the Circumflex. emerge 2.5 x 12 Balloon catheter was advanced across lesion in the circumflex, mid . PTCA balloon inflated at 6 atms for 8 secs. PTCA balloon inflated at 6 atms for 9 secs. PTCA balloo n inflated at 6 atms for 8 secs. PTCA balloon inflated at 6 atms for 9 secs. PTCA balloon inflated at 8 atms for 14 secs. Angiogram performed post balloon dilatation. 2.75 x 18 resolute Drug Eluting prachi nt was advanced across the lesion in the circumflex, mid. Angiogram performed pre stent deployment. A ngiogram performed post stent deployment. nc emerge 3.00 x 15 Balloon catheter was inserted post sten t. Angiogram performed post balloon dilatation. jr 4 cordis guide Guide catheter was inserted and eng aged into the RCA. runthrough Guide wire was advanced to the RCA. synergy 2.5 x 38 Drug Eluting stent was advanced across the lesion in the right coronary, proximal. Angiogram performed post stent deployment. nc emerge 3.00 x15 Balloon catheter was inserted post stent. Angiogram performed pr e balloon dilatation. Angiogram performed post balloon dilatation. The arterial sheath was pulled a nd a TR Band was applied for hemostasis 14 cc's of air CORONARY ANGIOGRAPHY DOMINANCE: Right Dominant LEFT HEART ASSESSMENT Left Ventricular Ejection Fraction: by LV Gram 65 % LVEDP: 3 mmHg Posterior Hypokinesis - Mild Calcified Aortic Arch LEFT MAIN: Angiographically normal LEFT ANTERIOR DESCENDING ARTERY: 30% Prox, calcified CIRCUMFLEX ARTERY: 50% ostial, 99% Mid INTERVENTION INFORMATION LESION SITE: Circumflex (Mid) Lesion Complexity: Non-High/Non-C, culprit lesion: Yes, In-stent restenosis: No Pre Stenosis: 99 % Pre intervention MERNA flow: 3 PROCEDURE: Drug Eluting Stent with pre and post dilatation Post Stenosis: 0 % Post intervention MERNA flow: 3 Lesion Devices: Nelson Sci EMERGE MR 2.50x12 BALLOON Nelson Sci NC EMERGE MR 3.00x15 BALLOON Medtronic Resolute RX MICHELLE 2.75x18 LESION SITE: RCA (Proximal) In-stent restenosis: No, Lesion Complexity: High/C, culprit lesion: No Pre Stenosis: 75 % Pre intervention MERNA flow: 3 PROCEDURE: Drug Eluting Stent with post dilatation Post Stenosis: 0 % Post intervention MERNA flow: 3 Lesion Devices: Nelson Sci NC EMERGE MR 3.00x15 BALLOON Cordis 6 Fr JR4 100cm Guide Catheter Nelson Sci Synergy MR MICHELLE 2.50x38 COMPLICATIONS No Complications PROCEDURE MEDICATIONS Versed 1 mg IV Fentanyl 50 mcg IV Oxygen: 2 L/min via nasal cannula Brilinta 180 mg PO @ 02/20/2019 20:51:44 Heparin given IA 02/20/2019 19:49:33 Heparin 6000 unit(s) IV 02/20/2019 19:57:40 Heparin 1000 unit(s) IV 02/20/2019 20:08:28 Heparin 1000 unit(s) IV 02/20/2019 20:33:43 Nitro 200 mcg IC 02/20/2019 20:29:55 Nitro 200 mcg IC 02/20/2019 20:29:55 Verapamil 2.5mg, Ntg 100mcgs, 2000 units of Heparin given IA 02/20/2019 19:49:33 SUMMARY OF HEMODYNAMIC DATA Time AIR REST ECG 19:41:24 AO 146/57 (97) SA 19:50:57 LV 133/-2, 3 19:58:35 LV 135/-3, 4 19:58:42 LV 130/6, 12 19:59:49 LVp 138/-3, 18 20:00:21 AOp 139/54 (89) 20:00:26 Signed By Susan Gonzalez MD On 02/23/2019 13:34:14 Susan Gonzalez MD
[2019-02-20] MEDS: 0.9% Normal Saline 1,000 ML 150 ML IV (21:41)
[2019-02-20] MEDS: Atorvastatin Calcium 80 MG Tablet PO (21:43)
[2019-02-20 22:10] LABS: Bedside Glucose 196 mg/dL (70-110)
[2019-02-21] VITALS (15 sets, daily range): BP systolic 110–175; BP diastolic 35–112; PULSE 55–82; RESP 11–21; TEMP 36.4–36.9; O2SAT 98–100
[2019-02-21 04:21] LABS: Hematocrit 32.8 % (37-47); Hemoglobin 10.8 g/dl (12.0-15.0); Mean Corp Hgb Conc 32.9 g/gl (32-36); Mean Corpuscular Hgb 26.9 pg (27.0-32.0); Mean Corpuscular Volume 81.8 fL (81-99); Platelet Count 130 K/mm3 (150-450); RBC Distribution Width CV 13.7 % (11.6-14.6); RBC Distribution Width SD 41.2 fl (35.1-43.9); Red Blood Count 4.01 M/mm3 (4.2-5.4); White Blood Count 6.7 K/mm3 (4.4-11.0)
[2019-02-21 04:27] LABS: Scan Indicated on CBC? Y/N NO
[2019-02-21 04:32] LABS: Anion Gap 7 (5-15); BUN 14 mg/dL (7-18); BUN/Creat Ratio 22.4 RATIO (10-20); Chloride 110 mmol/L (98-107); Creatinine, Serum 0.62 mg/dL (0.55-1.02); EST Glomerular Filtration Rate 101 mL/min (>60); Est Glom Filt Rate - Afr Amer 122 mL/min (>60); Estimated Creatinine Clearance 40.07 ml/min; Glucose 166 mg/dL (74-106); Potassium 3.6 mmol/L (3.5-5.1); Sodium Level 142 mmol/L (136-145)
[2019-02-21 06:36] LABS: Bedside Glucose 179 mg/dL (70-110)
[2019-02-21] MEDS: Insulin Lispro 100 UNIT/ML INSULN.PEN SQ ×2 (08:39→11:23)
[2019-02-21] MEDS: Insulin NPH Human 100 UNITS/ML PEN SC (08:40)
[2019-02-21] MEDS: Pantoprazole Sodium 40 MG Tablet PO (08:42)
[2019-02-21] MEDS: glipiZIDE 10 MG Tablet PO (08:42)
[2019-02-21] MEDS: Oxybutynin 5 MG Tablet 2.5 MG PO (08:42)
[2019-02-21] MEDS: TICAGRELOR 90 MG TABLET PO (08:43)
[2019-02-21] MEDS: Carvedilol 6.25 MG Tablet PO (08:43)
[2019-02-21] MEDS: Aspirin E.C. 81 MG Tablet PO (08:43)
[2019-02-21] MEDS: Multivitamins,Therapeutic Tablet 1 TABLET PO (08:44)
[2019-02-21] MEDS: hydroCHLOROthiazide 25 MG Tablet PO (08:47)
[2019-02-21] MEDS: tiZANidine HCl 2 MG Tablet PO (08:48)
--- NOTE | 2019-02-21 10:00 | EKG12_ITS ---
Test Reason : CP ADMIT Blood Pressure : / mmHG Vent. Rate : 062 BPM Atrial Rate : 062 BPM P-R Int : 200 ms QRS Dur : 090 ms QT Int : 472 ms P-R-T Axes : 059 011 071 degrees QTc Int : 479 ms Normal sinus rhythm Nonspecific T wave abnormality Prolonged QT Abnormal ECG When compared with ECG of 19-FEB-2019 23:00, MANUAL COMPARISON REQUIRED, DATA IS UNCONFIRMED Confirmed by DUNIA CARDENAS, LUIS ([id number]), graphic editor RHONDA JONES ([id number]) on 03/01/2019 2:43:37 PM Referred By: Rene Turpin Confirmed By:LUIS DUQUE MD
[2019-02-21 11:31] LABS: Bedside Glucose 414 mg/dL (70-110)
--- NOTE | 2019-02-21 12:27 | PCM.PROGNOTE ---
Patient Problems: Active and Suspected Problems Non-STEMI (non-ST elevated myocardial infarction) (Acute) Subjective: Patient seen and examined. Underwent PTCA/MICHELLE to mid LCx and proximal and mid RCA last evening. Denies further chest pain or shortness of breath. - Physical Exam General: Alert, Oriented x3, Cooperative HEENT: Atraumatic, PERRLA, EOMI, Normocephalic Neck: Supple, No JVD, Negative Carotid Bruits Lungs: Clear to auscultation, Normal air movement Cardiovascular: Regular rate, Regular Rhythm, Normal S1, Normal S2, No murmurs Abdomen: Bowel Sounds Present, Soft, Non Tender, Non-Distended Extremities: No clubbing, No cyanosis, No edema, Capillary Refill Less than 3 Seconds Skin: No rashes, No breakdown Musculoskeletal: No Tenderness to Palpation of Joints or Extremities Neurological: Cranial nerves II-XII grossly intact, Neuro grossly intact Psych/Mental Status: Normal Affect, Appropriate Vital Signs Temp Pulse Resp BP Pulse Ox 98 F 76 18 149/66 H 99 02/21/19 12:00 02/21/19 12:00 02/21/19 12:00 02/21/19 12:00 02/21/19 12:00 Oxygen Flow Rate (L/min) 2 Oxygen Delivery Method Room Air Weight: 153 lb 14.122 oz Body Mass Index (BMI) 29.0 Intake and Output for Last 24 Hours 02/19/19 02/20/19 02/21/19 23:59 23:59 23:59 Intake Total 1401.2 / 1401.2 1520 / 1520 Output Total 700 / 700 1800 / 1800 Balance 701.2 / 701.2 -280 / -280 Laboratory Tests Past 24 Hrs 02/20/19 02/20/19 02/20/19 20:03 20:28 20:52 WBC RBC Hgb Hct MCV MCH MCHC RDW RDW Differential Plt Count MPV Activated Clotting Time 257 H 252 H 263 H Sodium Potassium Chloride Carbon Dioxide Anion Gap BUN Creatinine Estim Creat Clear Calc Est GFR (MDRD) Af Amer Est GFR (MDRD) Non-Af BUN/Creatinine Ratio Glucose Calcium 02/21/19 02/21/19 04:00 04:00 WBC 6.7 RBC 4.01 L Hgb 10.8 L Hct 32.8 L MCV 81.8 MCH 26.9 L MCHC 32.9 RDW 13.7 RDW Differential 41.2 Plt Count 130 L MPV 11.0 Activated Clotting Time Sodium 142 Potassium 3.6 Chloride 110 H Carbon Dioxide 25.0 Anion Gap 7 BUN 14 Creatinine 0.62 Estim Creat Clear Calc 40.07 Est GFR (MDRD) Af Amer 122 Est GFR (MDRD) Non-Af 101 BUN/Creatinine Ratio 22.4 H Glucose 166 H Calcium 8.0 L POC Glucose 02/21/19 02/21/19 02/20/19 11:21 06:26 22:02 POC Glucose 414 H 179 H 196 H 02/20/19 16:48 POC Glucose 186 H Medical Necessity - Tobacco Use Smoking Status: Never smoker Tobacco Use: Non-smoker Assessment/Plan All Active Problems Non-STEMI (non-ST elevated myocardial infarction) (Acute) 1. Unstable angina/NSTEMI-EKG without ischemic changes. Cardiology consulted. Underwent PTCA/MICHELLE to mid LCx and proximal and mid RCA 02/20/19. Continue Plavix, statin, Brilinta, carvedilol. Outpatient follow-up with cardiology. 2. Type 2 diabetes mellitus-hold metformin regimen. Continue glipizide regimen. Continue home scheduled insulin regimen. Accu-Cheks ACHS with sliding scale insulin. 3. Hypertension-Home metoprolol regimen changed to carvedilol 6.25 mg p.o. twice daily. Additionally added on HCTZ per cardiology. 4. Hyperlipidemia-continue statin. 5. Chronic back pain-continue Zanaflex regimen. 6. Urinary incontinence-continue oxybutynin regimen. 7. GERD-continue PPI. DVT prophylaxis-Lovenox Discharge planning: Anticipate discharge home tomorrow with further outpatient follow-up with cardiology. This patient was seen by SCAR Russell under the supervision of Dr. Elena.
--- NOTE | 2019-02-21 12:38 | PCM.PN.CARD ---
Subjectve: No complaints. Ambulated in the hallway is this morning. No chest pains or shortness of breath. Denies any complaints. Objective: Vital Signs Temp Pulse Resp BP Pulse Ox 98 F 76 18 149/66 H 99 02/21/19 12:00 02/21/19 12:00 02/21/19 12:00 02/21/19 12:00 02/21/19 12:00 Oxygen Flow Rate (L/min) 2 Oxygen Delivery Method Room Air Weight: 69.8 kg Body Mass Index (BMI) 29.0 Intake and Output for Last 24 Hours 02/19/19 02/20/19 02/21/19 23:59 23:59 23:59 Intake Total 1401.2 / 1401.2 1520 / 1520 Output Total 700 / 700 1800 / 1800 Balance 701.2 / 701.2 -280 / -280 General: Healthy Appearing, Awake, Alert, Oriented x 3, No Acute Distress HEENT: Atraumatic, Normocephalic Oral: Moist Mucosa Neck: Supple Lungs: Clear to auscultation Cardiovascular: Regular Rhythm, Normal S1, Normal S2, No Rubs Vascular: - - Right radial pulse 2+. Extremities: No edema Neurological: No Focal Motor or Sensory Deficit Psych/Mental Status: Appropriate 02/21/19 04:00: WBC 6.7, RBC 4.01 L, Hgb 10.8 L, Hct 32.8 L, MCV 81.8, MCH 26.9 L, MCHC 32.9, RDW 13.7, RDW Differential 41.2, Plt Count 130 L, MPV 11.0 02/21/19 04:00: Sodium 142, Potassium 3.6, Chloride 110 H, Carbon Dioxide 25.0, Anion Gap 7, BUN 14, Creatinine 0.62, Est GFR (MDRD) Af Amer 122, Est GFR (MDRD) Non-Af 101, BUN/Creatinine Ratio 22.4 H, Glucose 166 H, Calcium 8.0 L Rhythm: Normal sinus rhythm EKG: Normal sinus rhythm. T wave changes consistent with her recent lateral ischemia/non-ST elevation MA ECHO: Stress Test: Cardiac Cath: PCI: CT Surgery: Holter monitor: EPS: PPM: CXR: Chest CT Scan: Medical Necessity - Tobacco Use Smoking Status: Never smoker Tobacco Use: Non-smoker Assessment/Plan 1. Non-ST elevation myocardial infarction. Status post percutaneous intervention to the left circumflex and to the right coronary artery. Stable. Asymptomatic. Continue aspirin indefinitely. Brilinta for at least one year. Continue beta-blockers. Add nitrates. 2. Hypertension. Continue beta-blockers. Hydrochlorothiazide started this morning. Also add Imdur. 3. Diabetes mellitus. 4. Dyslipidemia. Okay to discharge home from cardiology standpoint this morning. Follow-up with Dr. Davis in 1 to 2 weeks time. Patient started on hydrochlorothiazide. Check electrolytes BUN and creatinine in 2 to 3 days after discharge home.
--- NOTE | 2019-02-21 13:24 | DCINST_ITS ---
- Discharge Diagnoses Current Active Problems: Current Active and Chronic Problems Hypertension (Chronic) Diabetes mellitus type 2 (Chronic) Dyslipidemia (Chronic) GERD (Chronic) Chronic pain (Chronic) Non-STEMI (non-ST elevated myocardial infarction) (Acute) You will use the following diet at home:: Calorie/Carbohydrate Controlled (specify 1200, 1400, etc) - 1400, Cardiac Your food should be the consistency of: Regular Your liquids should be the consistency of: Regular/Thin Call your doctor if your incision/area has: Increased Pain/ Swelling, Increased Redness Call your doctor if you observe: Fever of 101 or Higher, Shortness of breath, Dizziness, Fainting spells, Swelling in the ankles, Chest pain, Increased palpitations (irregular heartbeat) Pending Tests on Discharge: BMP in 2-3 days Allergies/Adverse Reactions: Allergies lisinopril Allergy (Verified 02/19/19 21:45) Other cough, throat tightness Sulfa (Sulfonamide Antibiotics) Allergy (Verified 02/19/19 21:45) Rash Medications to take at Discharge Aspirin 81 mg PO DAILY 02/19/19 Glipizide 10 mg PO BID 02/19/19 Insulin NPH Human Isophane [Novolin N] 5 unit SC BREAKFAST 02/19/19 Insulin NPH Human Isophane [Novolin N] 15 unit SC DINNER 02/19/19 Multiple Vitamin 1 tab PO DAILY 02/19/19 Nabumetone 750 mg PO BID 02/19/19 Omeprazole 40 mg PO DAILY 02/19/19 Oxybutynin [Ditropan] 2.5 mg PO BID 02/19/19 Tizanidine HCl 2 mg PO DAILY 02/19/19 Atorvastatin Calcium [Lipitor] 80 mg PO QHS #30 tablet 02/21/19 Carvedilol [Coreg (Beta Padilla)] 6.25 mg PO BID #60 tablet 02/21/19 Hydrochlorothiazide [Hctz] 25 mg PO DAILY #30 tablet 02/21/19 Isosorbide Mononitrate [Imdur] 30 mg PO DAILY #30 tablet 02/21/19 Metformin HCl 1,000 mg PO BID #0 02/21/19 Ticagrelor [Brilinta] 90 mg PO BID #60 tablet 02/21/19 The following prescriptions were given: Atorvastatin Calcium [Lipitor] 80 mg PO QHS #30 tablet Hydrochlorothiazide [Hctz] 25 mg PO DAILY #30 tablet Isosorbide Mononitrate [Imdur] 30 mg PO DAILY #30 tablet Carvedilol [Coreg (Beta Padilla)] 6.25 mg PO BID #60 tablet Ticagrelor [Brilinta] 90 mg PO BID #60 tablet Primary Care Physician: Mick Leggett MD [Primary Care Provider] - Please follow up with your Primary Care Physician in: 3-5 days Test Results: Test results from this visit will be discussed in further detail at your follow- up appointment, if applicable. Please Follow Up With: Yassine Davis MD When: 1-2 weeks
--- NOTE | 2019-02-21 13:31 | PCM.DC.SUM ---
<Baylee Abel - Last Filed: 02/21/19 13:37> Discharge Date and Diagnosis Date of Admission: 02/19/19 Date of Discharge: 02/21/19 - Primary Discharge Diagnosis Active and Suspected Problems 1. Unstable angina/NSTEMI, s/p PTCA/MICHELLE to mid LCx and proximal and mid RCA 2. Type 2 diabetes mellitus 3. Hypertension 4. Hyperlipidemia 5. Chronic back pain 6. Urinary incontinence 7. GERD - Secondary Discharge Diagnosis Chronic Problems Hypertension (Chronic) Diabetes mellitus type 2 (Chronic) Dyslipidemia (Chronic) GERD (Chronic) Chronic pain (Chronic) Hospital Course and Treatment Imaging Results: Diagnostic Data Chest X-Ray 02/19/19 22:57 IMPRESSION: Calcified plaques of the aortic arch. Degenerative changes of the thoracic spine. Thoracolumbar dextroscoliosis. No acute cardiopulmonary disease process is seen. Electronically Signed: Young Ashley MD at 22:29 EDT , Service support , Dr. Gonazlez- Cardiology Operations: None Procedures: Cardiac catheterization Summary of Care Provided: The patient is a 69 year old F admitted 02/19/2019 due to chest pain. 1. Unstable angina/NSTEMI-EKG without ischemic changes. Cardiology consulted. Underwent PTCA/MICHELLE to mid LCx and proximal and mid RCA 02/20/19. Continue Plavix, statin, Brilinta, carvedilol, Imdur. Outpatient follow-up with cardiology, Dr. Davis in 1 to 2 weeks. Follow-up with primary care provider in 3 to 5 days. 2. Type 2 diabetes mellitus-hold metformin regimen. Continue glipizide regimen. Continue home scheduled insulin regimen. Accu-Cheks ACHS with sliding scale insulin. 3. Hypertension-Home metoprolol regimen changed to carvedilol 6.25 mg p.o. twice daily. Additionally added on HCTZ and Imdur per cardiology. 4. Hyperlipidemia-continue statin. 5. Chronic back pain-continue Zanaflex regimen. 6. Urinary incontinence-continue oxybutynin regimen. 7. GERD-continue PPI. General: Alert, Oriented x3, Cooperative HEENT: Atraumatic, PERRLA, EOMI, Normocephalic Neck: Supple, No JVD, Negative Carotid Bruits Lungs: Clear to auscultation, Normal air movement Cardiovascular: Regular rate, Regular Rhythm, Normal S1, Normal S2, No murmurs Abdomen: Bowel Sounds Present, Soft, Non Tender, Non-Distended Extremities: No clubbing, No cyanosis, No edema, Capillary Refill Less than 3 Seconds Skin: No rashes, No breakdown Musculoskeletal: No Tenderness to Palpation of Joints or Extremities Neurological: Cranial nerves II-XII grossly intact, Neuro grossly intact Psych/Mental Status: Normal Affect, Appropriate Patient seen and examined prior to discharge. Physical assessment as noted above. Patient is stable for discharge with follow up recommendations as noted above. This patient was seen by SCAR Russell under the supervision of Dr. Elena. - Physical Exam Vital Signs Temp Pulse Resp BP Pulse Ox 98 F 76 18 149/66 H 99 02/21/19 12:00 02/21/19 12:00 02/21/19 12:00 02/21/19 12:00 02/21/19 12:00 Oxygen Flow Rate (L/min) 2 Oxygen Delivery Method Room Air Weight: 153 lb 14.122 oz Body Mass Index (BMI) 29.0 Intake and Output for Last 24 Hours 02/19/19 02/20/19 02/21/19 23:59 23:59 23:59 Intake Total 1401.2 / 1401.2 1520 / 1520 Output Total 700 / 700 1800 / 1800 Balance 701.2 / 701.2 -280 / -280 Laboratory Tests Past 24 Hrs 02/20/19 02/20/19 02/20/19 20:03 20:28 20:52 WBC RBC Hgb Hct MCV MCH MCHC RDW RDW Differential Plt Count MPV Activated Clotting Time 257 H 252 H 263 H Sodium Potassium Chloride Carbon Dioxide Anion Gap BUN Creatinine Estim Creat Clear Calc Est GFR (MDRD) Af Amer Est GFR (MDRD) Non-Af BUN/Creatinine Ratio Glucose Calcium 02/21/19 02/21/19 04:00 04:00 WBC 6.7 RBC 4.01 L Hgb 10.8 L Hct 32.8 L MCV 81.8 MCH 26.9 L MCHC 32.9 RDW 13.7 RDW Differential 41.2 Plt Count 130 L MPV 11.0 Activated Clotting Time Sodium 142 Potassium 3.6 Chloride 110 H Carbon Dioxide 25.0 Anion Gap 7 BUN 14 Creatinine 0.62 Estim Creat Clear Calc 40.07 Est GFR (MDRD) Af Amer 122 Est GFR (MDRD) Non-Af 101 BUN/Creatinine Ratio 22.4 H Glucose 166 H Calcium 8.0 L POC Glucose 02/21/19 02/21/19 02/20/19 11:21 06:26 22:02 POC Glucose 414 H 179 H 196 H 02/20/19 16:48 POC Glucose 186 H Discharge Diet: Low fat/ Low Cholesterol Call your doctor if your incision/area has: Increased Pain/ Swelling, Increased Redness Call your doctor if you observe: Fever of 101 or Higher, Shortness of breath, Dizziness, Fainting spells, Swelling in the ankles, Chest pain, Increased palpitations (irregular heartbeat) Home Medications: Medications to take at Discharge Aspirin 81 mg PO DAILY 02/19/19 Glipizide 10 mg PO BID 02/19/19 Insulin NPH Human Isophane [Novolin N] 5 unit SC BREAKFAST 02/19/19 Insulin NPH Human Isophane [Novolin N] 15 unit SC DINNER 02/19/19 Multiple Vitamin 1 tab PO DAILY 02/19/19 Nabumetone 750 mg PO BID 02/19/19 Omeprazole 40 mg PO DAILY 02/19/19 Oxybutynin [Ditropan] 2.5 mg PO BID 02/19/19 Tizanidine HCl 2 mg PO DAILY 02/19/19 Atorvastatin Calcium [Lipitor] 80 mg PO QHS #30 tablet 02/21/19 Carvedilol [Coreg (Beta Padilla)] 6.25 mg PO BID #60 tablet 02/21/19 Hydrochlorothiazide [Hctz] 25 mg PO DAILY #30 tablet 02/21/19 Isosorbide Mononitrate [Imdur] 30 mg PO DAILY #30 tablet 02/21/19 Metformin HCl 1,000 mg PO BID #0 02/21/19 Ticagrelor [Brilinta] 90 mg PO BID #60 tablet 02/21/19 Following Prescrptions Were Given to Patient: Atorvastatin Calcium [Lipitor] 80 mg PO QHS #30 tablet Hydrochlorothiazide [Hctz] 25 mg PO DAILY #30 tablet Isosorbide Mononitrate [Imdur] 30 mg PO DAILY #30 tablet Carvedilol [Coreg (Beta Padilla)] 6.25 mg PO BID #60 tablet Ticagrelor [Brilinta] 90 mg PO BID #60 tablet Primary Care Physician: Mick Leggett MD [Primary Care Provider] - Please follow up with your Primary Care Physician in: 3-5 days Please Follow Up With: Yassine Davis MD When: 1-2 weeks Disposition: Home Minutes spent on discharge:: 35 Patient Condition:: Stable Medical Necessity - Tobacco Use Smoking Status: Never smoker Tobacco Use: Non-smoker Meaningful Use Info Meaningful Use Diagnoses (Choose all that apply): AMI - AMI Aspirin given w/in 24hrs of arrival?: Yes ASA at discharge?: Yes Statins at discharge?: Yes Apolinar/ARB at discharge?: No Reason Apolinar/ARB not ordered:: Allergy Beta Padilla at discharge?: Yes Done w/ Acute ME measure.: Yes <Rom Elena F - Last Filed: 02/21/19 13:41> Discharge Date and Diagnosis - Secondary Discharge Diagnosis Chronic Problems Hypertension (Chronic) Diabetes mellitus type 2 (Chronic) Dyslipidemia (Chronic) GERD (Chronic) Chronic pain (Chronic) Hospital Course and Treatment Summary of Care Provided: The patient is a 69 year old F [] - Physical Exam Vital Signs Temp Pulse Resp BP Pulse Ox 98 F 76 18 149/66 H 99 02/21/19 12:00 02/21/19 12:00 02/21/19 12:00 02/21/19 12:00 02/21/19 12:00 Oxygen Flow Rate (L/min) 2 Oxygen Delivery Method Room Air Weight: 153 lb 14.122 oz Body Mass Index (BMI) 29.0 Intake and Output for Last 24 Hours 02/19/19 02/20/19 02/21/19 23:59 23:59 23:59 Intake Total 1401.2 / 1401.2 1520 / 1520 Output Total 700 / 700 1800 / 1800 Balance 701.2 / 701.2 -280 / -280 Laboratory Tests Past 24 Hrs 02/20/19 02/20/19 02/20/19 20:03 20:28 20:52 WBC RBC Hgb Hct MCV MCH MCHC RDW RDW Differential Plt Count MPV Activated Clotting Time 257 H 252 H 263 H Sodium Potassium Chloride Carbon Dioxide Anion Gap BUN Creatinine Estim Creat Clear Calc Est GFR (MDRD) Af Amer Est GFR (MDRD) Non-Af BUN/Creatinine Ratio Glucose Calcium 02/21/19 02/21/19 04:00 04:00 WBC 6.7 RBC 4.01 L Hgb 10.8 L Hct 32.8 L MCV 81.8 MCH 26.9 L MCHC 32.9 RDW 13.7 RDW Differential 41.2 Plt Count 130 L MPV 11.0 Activated Clotting Time Sodium 142 Potassium 3.6 Chloride 110 H Carbon Dioxide 25.0 Anion Gap 7 BUN 14 Creatinine 0.62 Estim Creat Clear Calc 40.07 Est GFR (MDRD) Af Amer 122 Est GFR (MDRD) Non-Af 101 BUN/Creatinine Ratio 22.4 H Glucose 166 H Calcium 8.0 L POC Glucose 02/21/19 02/21/19 02/20/19 11:21 06:26 22:02 POC Glucose 414 H 179 H 196 H 02/20/19 16:48 POC Glucose 186 H Code Visit Addendum: Dr. Elena I personally examined the patient and reviewed the chart. I agree with the above. 69-year-old female presenting with chest pain with activity. She developed chest pain with rest last evening and was taken for urgent cath and had 2 stents placed. Today she feels much better than she did when she came in. Cardiology made some medication changes including changing her from metoprolol to Coreg, and adding hydrochlorothiazide and Imdur for pressure control. Cardiology cleared her for discharge today. She will need to be on aspirin and Brilinta for at least a year. I did discuss with her that if she finds that the Brilinta is too expensive for her that she is to fill it at least for that month and then to call the physician to get a prescription for Plavix. Also given her contrast load last night she is to hold off on restarting her metformin until Friday. Inpatient E&M: [id number] Disch Hosp
[2019-02-21] MEDS: Isosorbide Mononitrate 30 MG Tablet PO (13:59)
--- NOTE | 2019-02-21 14:07 | NURSING ---
reviewed discharge instructions with patient & family, discharged with instructions & scripts in care of family
--- NOTE | 2019-02-23 09:33 | CRPHASE1_ITS ---
Patient Communication PHII Cardiac Rehab Discussed with Patient:: Yes Guide to Cardiac Rehab Given to Patient:: Yes - PT DISCHARGED / CR PACKET MAILED Cardiac Rehab Facility Choice List Given to Patient:: Yes Choice Program [facility] CR PHII:: Communication Given to CR, Refer to [facility] [place] [employer] Helper:: Susan Gonzalez Phase II Cardiac Rehab:: Yes Sessions:: 36 sessions - 3 days/wk, 12 weeks - PT DISCHARGED / PATIENT CALLED / CR PACKET MAILED Risk Factors/Lifestyle Smoking Status: Never smoker Family History: Family History (Last Updated 02/23/19 @ 08:28 by Lizet Prakash) Father CAD (coronary artery disease) Laboratory Values: Cardiac Rehab Phase I Labs Hemoglobin A1c 7.5 % (4.2-6.3) H 02/20/19 04:16 Triglycerides 146 mg/dL (-199) 02/20/19 04:16 Cholesterol 106 mg/dL (200) 02/20/19 04:16 LDL Cholesterol 35 mg/dL (0-130) 02/20/19 04:16 HDL Cholesterol 42 mg/dL (40-) 02/20/19 04:16 Hospital Course Presenting Symptoms:: NON-STEMI Medical/Surgical History [place]:: Yes - NON-STEMI CAD:: No Cardiomyopathy:: No Pulmonary:: No Diabetes:: Yes Diabetes Type II:: Yes Hypertension:: Yes Dyslipidemia:: Yes CABG: No PTCA:: No ICD:: No Pacemaker:: No Discharge/Home/Social Eval Discharge Disposition: Home Cardiac Rehabilitation Info Cardiac Rehabilitation Program Information: Cardiac Rehabilitation is important for patients like you who are recovering from a heart problem. Cardiac rehabilitation programs are recognized as integral to the continued care of the patient with coronary heart disease. The cardiac rehabilitation program is designed to optimize a patient's physical, psychological, and social functioning. Health care program resident work in cardiac rehabilitation programs and assist you with getting the treatments you need to get stronger and healthier - like exercise, healthy eating habits, and medications. Cardiac rehabilitation has been show to help people with heart problems live longer and have better life enjoyment than people who do not go to cardiac rehabilitation. Please contact the Cardiac Rehabilitation Program at [facility] at in two weeks if you have not heard from them.
--- NOTE | 2019-02-23 09:33 | CRPH1.INSTRU ---
General Education CAD and cardiac anatomy and function:: Patient communicates acknowledgment - PT DISCHARGED / PT CALLED / CR PACKET MAILED Explanation of diagnoses and procedures:: Patient communicates acknowledgment Sign/Symptoms of AK:: Patient communicates acknowledgment Antiplatelet therapy: Patient communicates acknowledgment Proper use of NTG-SL: Not instructed Emergency procedures and activation of EMS: Patient communicates acknowledgment Compliance of all prescribed medications: Patient communicates acknowledgment Smoking Patient Nicotine/Smoking Risk Factors Are:: Never smoked Dyslipidemia Patient Dyslipidemia Risk Factors Are:: Total Cholesterol, Triglycerides, HDL, LDL Recommendations Include:: Lipid profile provided, Reviewed NCEP/ATP guidelines, Therapeutic Lifestyle Change dietary guidelines Dyslipidemia Response Code:: Patient communicates acknowledgment Overweight/Obesity Patient Overweight/Obesity Risk Factors Are:: Overweight = 26-29 Recommendations Include:: Weight loss of 5-10%, Reduced calorie diet, Exercise 5-7 times/week Overweight/Obesity:: Patient communicates acknowledgment Hypertension Recommendations Include:: BP <130/80 if diabetic, DASH dietary guidelines, Decrease/maintain normal body weight, Moderation of ETOH Hypertension:: Patient communicates acknowledgment Heart Disease Heart Disease Response Code:: Patient communicates acknowledgment Diabetes Patient Diabetes Risk Factors Are:: Elevated blood sugars Recommendations Include:: Maintain fasting blood sugars 70-110 md/dL, Maintain HgbA1c of 6% or less, Monitor blood sugar as prescribed, Diabetic dietary guidelines, Decrease/maintain body weight Diabetes:: Patient communicates acknowledgment Metabolic Syndrome Patient Metabolic Syndrome Risk Factors Are [3 of 5]:: Fasting blood sugar > 100 mg/dL, Waist circumference > 35 [female] or 40 [male], Hypertension, Low HDL <40 [male] or < 50 [female] Recommendations Include:: Reinforce compliance to risk factor modifications, Patient is diabetic, Encouraged follow-up with Primary Care Physician Metabolic Syndrome Response Code:: Patient communicates acknowledgment Sedentary Patient Sedentary Risk Factors Are:: Lack of regular exercise Recommendations Include:: Aerobic exercise 5-7 times/week for 20-30 minutes continuously, Benefits of regular exercise, Discussed home walking program, Monitored Outpatient Cardiac Rehab Sedentary Response Code:: Patient communicates acknowledgment Stress Recommendations Include:: Identification of stressors, and assessment of coping skills, Stress management techniques Stress Response Code:: Patient communicates acknowledgment
== END 2019-02-21 14:10 | disposition home or self-care (01) | DRG 247 ==
LOC: ED 23:29 → PCU 23:34 → ICU 02-23 11:03
PROVIDERS: Internal Medicine Cardiovascular Disease; Nurse Practitioner Family; Admitting Provider Internal Medicine; Emergency Provider Emergency Medicine; Family Provider Family Medicine; PCP Family Medicine; Referring Provider Internal Medicine; Visit Provider Family Medicine
DX: I21.4 Non-ST elevation (NSTEMI) myocardial infarction (principal); I10 Essential (primary) hypertension; I25.110 Atherosclerotic heart disease of native coronary artery with unstable angina pectoris; E11.9 Type 2 diabetes mellitus without complications; E78.5 Hyperlipidemia, unspecified; M54.9 Dorsalgia, unspecified; G89.29 Other chronic pain; K21.9 Gastro-esophageal reflux disease without esophagitis; R32 Unspecified urinary incontinence; Z79.02 Long term (current) use of antithrombotics/antiplatelets; Z79.82 Long term (current) use of aspirin; Z79.4 Long term (current) use of insulin; Z79.84 Long term (current) use of oral hypoglycemic drugs; Z79.1 Long term (current) use of non-steroidal anti-inflammatories (NSAID); Z79.899 Other long term (current) drug therapy
CPT/HCPCS: 36415; 71045; 80048; 80061; 81001; 82962; 83036; 83735; 84443; 84484; 85025; 85027; 85347; 92928; 93005; 93458; 99152; 99153; 99285; J7030; J7040; A4216; C1725; C1769; C1874; C1887; C1894; C9600; Q9967

== ENCOUNTER → 2019-03-04 08:55 | Outpatient (CLI) | payer MEDICARE, SELFPAY ==
[2019-02-19 23:44] VITALS: BMI 29.0
--- NOTE | 2019-03-04 09:21 | PCM.CR.ITP ---
General Information - General Information Admitting Diagnosis: NSTEMI, PCI W/CORONARY STENT PLACEMENT - Education/Goals Barriers to Learning: Vision Impairment Individual Counseling: Initial Assessment: Abnormal Cholesterol Levels, High Blood Pressure, Overweight/Obesity, Diabetes, A. Fasting Blood Sugar >100, B. Waist Circumference >35/Females >40/Males, C. High Triglycerides >150, Hypertension, Low HDL <40/Males or <50/Females, Sedentary Lifestyle, Family History of Heart Disease (under 65 years) Cardiac Rehabilitation Goals: 1. Maintain the individual as the primary focus of care. 2. To improve the patient's quality of life. 3. Identification of cardiac risk factors and provide cardiac risk factor management. 4. Enhance the psychosocial status of the patient. 5. Reconditioning enough to allow the patient to resume customary activities. 6. Control symptoms of cardiac disease Scale for measuring improvement of personal goals: Enter appropriate number in Comments. 2 = Unchanged. 3 = Slightly Better. 4 = Moderate Improvement. 5 = Met my Goal Personal Goals: Initial Assessment: Improve management of stress and emotions, Improve energy level, Participate in home exercise program, Get back to work, or to resume activities faster, Improve knowledge of cardiac disease, Improve muscle strength and endurance, Improve diet and eating habits (eat healthier), Control risk factors (learn risk factor modification) Exercise - Initial Assessment - Visit Date of Eval: 03/04/19 Session #:: 0 - SCHEDULED TO START ON 03/10/2019 @ 11:30 - Stages of Change Stages of Change:: Action - Physician Prescribed Exercise Modalities: Treadmill, Airdyne, NuStep, SciFit Frequency (days/week): 3x/week for 12 weeks [36 sessions] Duration (Minutes):: 30-45 Intensity: 60-80% age predicted maximum heart rate reserve METs - Progression: 0.5-1.0 MET, RPE 11-14 WEEK: 2.5 Target Heart Rate:: 98-128 - Hypertension Do any of the following apply?: Yes, Medication, Diet Resting Blood Pressure:: 148/66 - Intervention Home Exercise/Activity Goal:: Sitting Time <3 hrs/day - Education Goals:: Warm-up, RPE LONNIE Scale, S/S, Safe Exercise, Self-Monitoring - Exercise Program Goals Exercise Program Goals: Aerobic Activity >30 min Nutrition - Initial Assessment - Program Goals Nutrition Program Goals: LDL <70. Total Cholesterol <200. HDL >45. Triglycerides <150. HgbA1C <7%. BMI <25 - Visit Date of Assessment:: 03/04/19 - Stages of Change Stages of Change:: Action - Lipids Total Cholesterol (mg/dL) Goal = less than 200 mg/dL: 106 - 02/20/2019 HDL Cholesterol (mg/dL) Goal = less than 45 mg/dL: 42 LDL Cholesterol (mg/dL) Goal = less than 70 mg/dL: 35 Triglycerides (mg/dL) Goal = less than 150 mg/dL: 146 - Diabetes Diabetes:: Yes Insulin: Yes Non-Insulin Dependent?: Yes Do you monitor your blood sugar at home?: Yes - Weight Management Height: 5 ft 1 in Weight:: 153 lb Body Fat %:: 28.9 - Intervention Referral to dietitian:: Yes Referral to Diabetic Clinic:: Yes Will attend diet classes:: Yes - Education Gave educational materials for:: Signs & symptoms of hypoglycemia, Signs & symptoms of hyperglycemia, Relate diabetes to coronary artery disease, Healthy eating Tobacco - Initial Assessment - Program Goals Tobacco Program Goals: Complete smoking cessation. Attend education classes. Improve Knowledge Test score - Stage of Change Stages of Change:: Action - Learning Barriers Learning Barriers: Vision, Ready to Learn - Family Support Do you have family support?: Yes - Tobacco Use Tobacco Use: Non-smoker Do you use smokeless tobacco?: No - Intervention Smoking Cessation Referral:: No Individual Education/Counseling:: No Education Schedule Given:: Yes - Education Gave educational material for:: Coronary artery disease, Risk factors, Sexuality, Medical compliance, Cardiac A&P, Angina signs & symptoms Psychosocial - Initial Assess - Target Goals Target Goals: Assess presence or absence of depression. Using a valid screening tool, maximizes coping skills. Positive support system - Stages of Change Stages of Change:: Action - Psychosocial Test Tool Used:: HANDS Depression Questionnaire - Intervention PS - Interventions: Yes Attend Stress Management Classes, No Referral to Mental Health, No Referral to [facility] Case Management, No Referral to Physician, No Uses Stress Management Skills - Education Gave educational materials for:: Coping techniques, Signs & symptoms of depression, Stress management, Relaxation techniques - Patient/Program Goal Preventative Medication(s):: Aspirin, Clopidogrel, Beta josh, Statin/lipid - Assistive Devices Assistive Devices:: None Fall Risk Assessed:: Yes Patient Health Questionnaire Initial Assessment 1. Little interest or pleasure in doing things: Nearly every day 2. Feeling down, depressed, or hopeless: Several days 3. Trouble falling or staying asleep, or sleeping too much: Several days 4. Feeling tired or having little energy: Nearly every day 5. Poor appetite or overeating: More than half the days 6. Feeling bad about yourself -- or that you are a failure or have let yourself or your family down: Nearly every day 7. Trouble concentrating on things, such as reading the newspaper or watching television: Nearly every day 8. Moving or speaking so slowly that other people could have noticed. Or the opposite - being so fidgety or restless that you have been moving around a lot more than usual: Several days 9. Thoughts that you would be better off , or of hurting yourself in some way: Not at all How difficult have these problems made it for you to do your work, take care of things at home, or get along with other people?: Very difficult - ELEVATED PHQ-9 SCORE; ROB RE-EVALUATE PATIENT BUT SHE MAY BENEFIT FROM DEPRESSION COUNSELING OR MEDICAL INTERVENTION. Total Score: 17 SHELTON-Q SV Test - Statements CAD is a disease of the arteries in the heart: False Examples of risk factors for heart disease: True Angina is chest pain or discomfort: False The benefits of resistance training include: True Eating more meat and dairy products: False Anti-platelet medications such as aspirin are important: True The only effective way to manage stress: False An exercise warm-up slowly increases heart rate: False Prepared, processed foods usually have high sodium: True Depression is common after a heart attack: True The statin medications lower cholesterol: True To control blood pressure, lower the amount of sodium: True If someone gets chest discomfort during walking: False Transfats are partially hydrogenated vegetable oils: True Sleep apnea that is not treated increases the risk: False To control cholesterol, one should become a vegetarian: False Someone knows if he/she is exercising at the right level: True Diabetes cannot be prevented with exercise & health eating: False Stress is a large risk for heart attack: True A diet that can help lower blood pressure is rich in: True - Total Score Total Correct Responses: 18 Self-Efficacy Initial Assessment We would like to know how confident you are in doing certain activities. Please select your confidence level for:: Select your confidence level for the following using the scale 1-10 where 1 is not at all confident and 10 is totally confident. Your score is the average of all 6 responses. Fatigue: How confident are you that you can keep the fatigue caused by your disease from interfering with the things you want to do? Select Number: 1 Physical Discomfort or Pain: How confident are you that you can keep the physical discomfort or pain of your disease from interfering with the things you want to do? Select Number: 1 Emotional Distress: How confident are you that you can keep the emotional distress caused by your disease from interfering with the things you want to do? Select Number: 5 Other Symptoms or Health Problems: How confident are you that you can keep other symptoms or health problems from interfering with the things you want to do? Select Number: 1 Different Tasks and Activities: How confident are you that you can do the different tasks and activities needed to manage your health condition so as to reduce your need to see a doctor? Select Number: 5 Medication: How confident are you that you can do things other than just taking medication to reduce how much your illness affects your everyday life? Select Number: 1 Total Score:: 2 Nutrition Survey - Nutrition Survey Instructions Scoring Instructions: Scoring is as follows: Yes = 1 points. No = 0 point. Patient score that is >/=12 is considered to be at potential nutritional risk and could benefit from a referral to a registered dietitian. - Nutrition Survey Initial Have you lost >10 lbs over the past 2 months without trying?: No Are you following a special diet at home for diabetes, low fat, or low salt?: Yes Are you interested in meeting with a dietitian for help understanding your diet?: Yes Do you eat less than 3 meals a day?: Yes Do you eat fatty meats (de la rosa, sausage, ribs, etc), fried foods, desserts, large amounts of salad dressings, margarine, butter, or cheese most days?: Yes Do you have food allergies? [Enter types in comment field]: No Do you eat in restaurants more than 3 times a week?: No Do you season food with salt, seasoning salt, or garlic salt?: Yes Do you used canned, boxed, frozen meals, or soups, seasoning packets?: Yes - HIGH NUTRITION SCORE, PATIENT IS ALSO DIABETIC AND OVERWEIGHT. Total Score:: 6
--- NOTE | 2019-03-04 09:21 | PCM.CR.HP2 ---
CR - History & Physical - General Arrival date:: 03/04/19 Arrival time:: 09:00 Date of Referral:: 02/23/19 Date of CR Evaluation:: 03/04/19 Referring Physician: DR. LUIS DUQUE Primary Diagnosis: NSTEMI, PCI W/STENT - History of Present Cardiac Event Onset Date: Enter Onset Date of cardiac illnesses in Comment field below Acute Myocardial Infarction within 12 months:: Yes - 02/20/2019 PTCA or coronary stenting:: Yes - 02/20/2019 Type of Symptoms:: CHEST PAIN OVER COURSE OF 3 DAYS, PATIENT STATED SHE EXPERIENCED INTERMITTENT DISCOMFORT ESPECIALLY WITH ACTIVTY AND EXERTION. PRESENTED TO THE EMERGENCY ROOM AND WAS THEN ADMITTED. Interventions with present event:: HEART CATH, PCI INTERVENTION CORONARY STENT PLACEMENT Were there any complications?: NONE - Medications Home Medications: Ambulatory Orders Medication Instructions Recorded Aspirin 81 mg PO DAILY 02/19/19 Glipizide 10 mg PO BID 02/19/19 Insulin NPH Human Isophane 5 unit SC BREAKFAST 02/19/19 [Novolin N] Insulin NPH Human Isophane 15 unit SC DINNER 02/19/19 [Novolin N] Multiple Vitamin 1 tab PO DAILY 02/19/19 Omeprazole 40 mg PO DAILY 02/19/19 Oxybutynin [Ditropan] 2.5 mg PO BID 02/19/19 Tizanidine HCl 2 mg PO DAILY 02/19/19 Atorvastatin Calcium [Lipitor] 80 mg PO QHS #30 tablet 02/21/19 Carvedilol [Coreg (Beta Padilla)] 6.25 mg PO BID #60 tablet 02/21/19 Hydrochlorothiazide [Hctz] 25 mg PO DAILY #30 tablet 02/21/19 Isosorbide Mononitrate [Imdur] 30 mg PO DAILY #30 tablet 02/21/19 Metformin HCl 1,000 mg PO BID #0 02/21/19 Ticagrelor [Brilinta] 90 mg PO BID #60 tablet 02/21/19 Loratadine [Wal-Itin] 10 mg PO 03/04/19 - Allergies Allergies/Adverse Reactions: Allergies lisinopril Allergy (Verified 03/04/19 09:42) Laryngospasms cough, throat tightness Sulfa (Sulfonamide Antibiotics) Allergy (Verified 02/19/19 21:45) Rash - Sleep Disorder Evaluation Hx of Sleep Apnea: No Do you snore loudly (louder than talking or can be heard through closed doors)?: Yes Do you often feel tired/ fatigued/ sleepy during daytime?: Yes - A LOT LATELY; FREQUENTLY DOSES OFF IN CHAIR WATCHING TV DURING THE DAYTIME. Has anyone observed you stop breathing during sleep?: No History of Hypertension (for STOP score): Yes STOP Results: Positive Advanced Directives - Advanced Directives Power of Tree Deadener: No Living Will: No Advance Directives Information Provided: Yes Advance Directives on File: No DNR Order?:: No - MOLST See MOLST form: No Past Medical History - Past Medical Illness Medical History: Past Medical History (Last Updated 02/23/19 @ 08:29 by Lizet Prakash) Atherosclerotic heart disease of [place] coronary artery without angina pectoris (Chronic) I25.10 PCI-MICHELLE Mid-LCX w/ 2.75 x 18 mm Resolute Integrity and ASI-QBN-CVS-RCA w/ MICHELLE 2.50 x 38 mm Synergy MR 02/20/19 Essential (primary) hypertension (Chronic) I10 Dyslipidemia (Chronic) E78.5 Non-STEMI (non-ST elevated myocardial infarction) (Resolved) Onset Date: 02/20/19 I21.4 Chronic back pain M54.9, G89.29 GERD (gastroesophageal reflux disease) K21.9 Type 2 diabetes mellitus E11.9 - Past Surgical History Surgical History: Past Surgical History (Last Updated 02/23/19 @ 08:28 by Lizet Prakash) History of coronary artery stent placement (Resolved) Onset Date: 02/20/19 Z95.5 PCI-MICHELLE Mid-LCX w/ 2.75 x 18 mm Resolute Integrity and BXU-EDS-Zayw-Mid RCA w/ MICHELLE 2.50 x 38 mm Synergy MR 02/20/19 Surgical History: appendectomy, cholecystectomy, hysterectomy - TOTALCOMPLETE, - - TUBAL SURGERY, FRACTURED JAW, RIGHT-LEFT CARPAL TUNNEL SURGERY, - Family History Summary Family History: Family History (Last Updated 02/23/19 @ 08:28 by Lizet Prakash) Father CAD (coronary artery disease) Social History - Smoking History Smoking Status: Never smoker Hx Tobacco Use: No Hx Smoking Exposure: No - Alcohol Use Alcohol Usage: No - Substance Abuse Hx Substance Use: No - Occupation Occupation (List type of work in comments):: Retired - Hobbies, Recreation, Social Activities Hobbies: Woodworking - CARVING, Sewing - KNITTING, SEWING, KEISHA, Other - CRAFTING PROJECTS Recreational Activities: I am able to engage in a few activities, I can hardly do any recreational activities Social Environment - Status Marital Status: - Current Living Arrangements Living Environment:: Spouse - Children How many children do you have?: 5 Do any of your children live nearby?: Yes - ONE SON VERY CLOSE; DAUGHTER IN [place] - Safety Do you feel safe in your surroundings?: Yes - Assistance Do you need any assistance at home?: NEEDING ASSISTANCE FOR WHEELCHAIR BOUND ; 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 Left click = Reports ([place]) Review of Present Symptoms: Reports: Shortness of Breath at Rest, Shortness of Breath with Exertion, Angina - UNSURE IF IT IS THE GERD SYMPTOMS OR IF IT IS RELATED TO THE HEART. MORE OF INDIGESTION BURNING THAN PAIN., Dizziness/Lightheadedness - HAVE HAD ONE DIZZY SPELL AT HOME SINCE DISCHARGE BUT FEEL IT WAS RELATED TO STANDING AND TURNING TO QUICKLY., Fatigue, Appetite - Special Diet - CARDIAC 1400 CALORIE LOW FAT LOW SALT DIET., Sleep - Normal. Denies: Appetite - Normal - LOSS OF APPETITE - Pain Is Patient Pain Free?: No Pain Location: back - CHRONIC BACK PAIN, Pain Level: 3/10 - DIFFICULTY WALKING ETC PAIN RADIATES DOWN BOTH LEGS. NEUROPATHY IN LOWER LEGS AND BOTH FEET. Risk Factor Assessment - Chief Complaint Chief Complaint: pATIENT IS A VERY PLEASANT FEMALE WHO PRESENTS TO CR TODAY FOLLOWING RECENT NSTEMI AND PCI INTERVENTION. - Vital Signs Temperature: 98.7 F Respiratory Rate: 16 Pulse Ox: 99 Blood Pressure: 148/66 Nailbeds:: PINK - Pulse Pulse Rate: 76 Pulse Rhythm: Regular - Hypertension How long have you been treated?: SEVERAL YEARS, UNKNOWN BUT IN THE LAST 10 YEARS. 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 SHE HAS HAD ONE AGENCY COME IN AT PRESENT TIME. - Blood Cholesterol/Lipids Total Cholesterol (mg/dL) Goal = less than 200 mg/dL: 106 - 02/20/2019 HDL Cholesterol (mg/dL) Goal = less than 40 mg/dL: 42 LDL Cholesterol (mg/dL) Goal = less than 70 mg/dL: 35 Triglycerides (mg/dL) Goal = less than 150 mg/dL: 146 - Obesity Height: 5 ft 1 in Weight:: 153 lb Weight in Pounds: 153.0 lbs Weight Source: Estimated by Patient Body Mass Index (BMI): 28.9 Nutritional Referral for Obesity: Yes - Physical Inactivity Physical Inactivity: None - Risk Stratification Risk Guidelines: Lowest Risk: Risk Factor for Smoking, Risk Factor for Dyslipidemia, Moderate Risk: Risk Factor for Diabetes, Risk Factor for Obesity, Risk Factor for Hypertension, Risk Factor for Sedentary Lifestyle - For Smoking Smoking Risk Guidelines: Smoking Low Risk: None or quit greater than 6 months ago. Smoking Moderate Risk: Smoker or quit 6 months or less ago. Smoking High Risk: Smoker - For Dyslipidemia Dyslipidemia Risk Guidelines: Low Risk: Moderate Risk: High Risk: 15-25% fat 25.1-29% fat >/= 30% fat. <7% sat fat 7-9% sat fat >9% sat fat. <150 mg chol 150-299 mg chol >/= 300 mg chol. LDL <100 LDL 100-129 LDL >/= 130. Chol/HDL ratio <5.0 Chol/HDL ratio 5.0-6.0 Chol/HDL ratio >6.0. Triglycerides <100 Triglycerides 100-149 Triglycerides >/= 150 - For Diabetes Mellitus Diabetes Risk Guidelines: Diabetes Low Risk: HgA1c <6.5% and/or FBG <120. Diabetes Moderate Risk: HgA1c 6.6-7.9% and/or FBG 120-180. Diabetes High Risk: HgA1c >/= 8% and/or FBG >180 - For Obesity/Overweight Obesity/Overweight Risk Guidelines: Obesity Low Risk: BMI <25.0. Obesity Moderate Risk: BMI 25-29.9. Obesity High Risk: BMI >/= 30.0 - For Hypertension Hypertension Risk Guidelines: Hypertension Low Risk: Systolic <120 and Diastolic <80. Hypertension Moderate Risk: Systolic 120-139 and Diastolic 80-89. Hypertension High Risk: Systolic >/= 140 and Diastolic >/= 90 - For Sedentary Lifestyle Sedentary Lifestyle Risk Guidelines: Sedentary Lifestyle Low Risk: >/= 1,500 kcal/week. Sedentary Lifestyle Moderate Risk: 700-1,499 kcal/week. Sedentary Lifestyle High Risk: < 700 kcal/week - For Depression Depression Risk Guidelines: Depression Low Risk: Not clinically depressed. Depression Moderate Risk: Mildly depressed. Depression High Risk: Clinically depressed - Family History Family History: Family History (Last Updated 02/23/19 @ 08:28 by Lizet Prakash) Father CAD (coronary artery disease) Motivation - Motivation to Participate On a scale of 1 to 10, how prepared are you to commit to attending program?: 10 What do you see as barriers to successfully being able to complete the program?: CONFLICTS WITH PRESCHEDULED APPOINTMENTS ALREADY SCHEDULED FOR What do you see as the benefits of succesfully completing the program? In other words, what do you hope to get out of participating in the program?: GETTING MORE ENERGY, STRENGTH, ENDURANCE, AND ABILITY TO PERFORM ACTIVITY Are there issues you are dealing with that will interfere with completing the program?: CHRONIC BACK PAIN, LEG PAIN. Do you have a spouse or signficant other, family or friends who will help support you to complete the program?: YES
--- NOTE | 2019-03-04 09:26 | CR.HP_ITS ---
CR - History & Physical - General Arrival date:: 03/04/19 Arrival time:: 09:00 Date of Referral:: 02/23/19 Date of CR Evaluation:: 03/04/19 Referring Physician: DR. LUIS DUQUE Primary Diagnosis: NSTEMI, PCI W/STENT - History of Present Cardiac Event Onset Date: Enter Onset Date of cardiac illnesses in Comment field below Acute Myocardial Infarction within 12 months:: Yes - 02/20/2019 PTCA or coronary stenting:: Yes - 02/20/2019 Type of Symptoms:: CHEST PAIN OVER COURSE OF 3 DAYS, PATIENT STATED SHE EXPERIENCED INTERMITTENT DISCOMFORT ESPECIALLY WITH ACTIVTY AND EXERTION. PRESENTED TO THE EMERGENCY ROOM AND WAS THEN ADMITTED. Interventions with present event:: HEART CATH, PCI INTERVENTION CORONARY STENT PLACEMENT Were there any complications?: NONE - Medications Home Medications: Ambulatory Orders Medication Instructions Recorded Aspirin 81 mg PO DAILY 02/19/19 Glipizide 10 mg PO BID 02/19/19 Insulin NPH Human Isophane 5 unit SC BREAKFAST 02/19/19 [Novolin N] Insulin NPH Human Isophane 15 unit SC DINNER 02/19/19 [Novolin N] Multiple Vitamin 1 tab PO DAILY 02/19/19 Omeprazole 40 mg PO DAILY 02/19/19 Oxybutynin [Ditropan] 2.5 mg PO BID 02/19/19 Tizanidine HCl 2 mg PO DAILY 02/19/19 Atorvastatin Calcium [Lipitor] 80 mg PO QHS #30 tablet 02/21/19 Carvedilol [Coreg (Beta Padilla)] 6.25 mg PO BID #60 tablet 02/21/19 Hydrochlorothiazide [Hctz] 25 mg PO DAILY #30 tablet 02/21/19 Isosorbide Mononitrate [Imdur] 30 mg PO DAILY #30 tablet 02/21/19 Metformin HCl 1,000 mg PO BID #0 02/21/19 Ticagrelor [Brilinta] 90 mg PO BID #60 tablet 02/21/19 Loratadine [Wal-Itin] 10 mg PO 03/04/19 - Allergies Allergies/Adverse Reactions: Allergies lisinopril Allergy (Verified 03/04/19 09:42) Laryngospasms cough, throat tightness Sulfa (Sulfonamide Antibiotics) Allergy (Verified 02/19/19 21:45) Rash - Sleep Disorder Evaluation Hx of Sleep Apnea: No Do you snore loudly (louder than talking or can be heard through closed doors)?: Yes Do you often feel tired/ fatigued/ sleepy during daytime?: Yes - A LOT LATELY; FREQUENTLY DOSES OFF IN CHAIR WATCHING TV DURING THE DAYTIME. Has anyone observed you stop breathing during sleep?: No History of Hypertension (for STOP score): Yes STOP Results: Positive Advanced Directives - Advanced Directives Power of Collector Of Port: No Living Will: No Advance Directives Information Provided: Yes Advance Directives on File: No DNR Order?:: No - MOLST See MOLST form: No Past Medical History - Past Medical Illness Medical History: Past Medical History (Last Updated 02/23/19 @ 08:29 by Lizet Prakash) Atherosclerotic heart disease of [place] coronary artery without angina pectoris (Chronic) I25.10 PCI-MICHELLE Mid-LCX w/ 2.75 x 18 mm Resolute Integrity and JKA-SBM-NZW-RCA w/ MICHELLE 2.50 x 38 mm Synergy MR 02/20/19 Essential (primary) hypertension (Chronic) I10 Dyslipidemia (Chronic) E78.5 Non-STEMI (non-ST elevated myocardial infarction) (Resolved) Onset Date: 02/20/19 I21.4 Chronic back pain M54.9, G89.29 GERD (gastroesophageal reflux disease) K21.9 Type 2 diabetes mellitus E11.9 - Past Surgical History Surgical History: Past Surgical History (Last Updated 02/23/19 @ 08:28 by Lizet Prakash) History of coronary artery stent placement (Resolved) Onset Date: 02/20/19 Z95.5 PCI-MICHELLE Mid-LCX w/ 2.75 x 18 mm Resolute Integrity and ZGP-CIW-Ibbz-Mid RCA w/ MICHELLE 2.50 x 38 mm Synergy MR 02/20/19 Surgical History: appendectomy, cholecystectomy, hysterectomy - TOTALCOMPLETE, - - TUBAL SURGERY, FRACTURED JAW, RIGHT-LEFT CARPAL TUNNEL SURGERY, - Family History Summary Family History: Family History (Last Updated 02/23/19 @ 08:28 by Lizet Prakash) Father CAD (coronary artery disease) Social History - Smoking History Smoking Status: Never smoker Hx Tobacco Use: No Hx Smoking Exposure: No - Alcohol Use Alcohol Usage: No - Substance Abuse Hx Substance Use: No - Occupation Occupation (List type of work in comments):: Retired - Hobbies, Recreation, Social Activities Hobbies: Woodworking - CARVING, Sewing - KNITTING, SEWING, KEISHA, Other - CRAF TING PROJECTS Recreational Activities: I am able to engage in a few activities, I can hardly do any recreational activities Social Environment - Status Marital Status: - Current Living Arrangements Living Environment:: Spouse - Children How many children do you have?: 5 Do any of your children live nearby?: Yes - ONE SON VERY CLOSE; DAUGHTER IN [place] - Safety Do you feel safe in your surroundings?: Yes - Assistance Do you need any assistance at home?: NEEDING ASSISTANCE FOR WHEELCHAIR BOUND ; 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 Left click = Reports ([place]) Review of Present Symptoms: Reports: Shortness of Breath at Rest, Shortness of Breath with Exertion, Angina - UNSURE IF IT IS THE GERD SYMPTOMS OR IF IT IS RELATED TO THE HEART. MORE OF INDIGESTION BURNING THAN PAIN., Dizziness/Lightheadedness - HAVE HAD ONE DIZZY SPELL AT HOME SINCE DISCHARGE BUT FEEL IT WAS RELATED TO STANDING AND TURNING TO QUICKLY., Fatigue, Appetite - Special Diet - CARDIAC 1400 CALORIE LOW FAT LOW SALT DIET., Sleep - Normal. Denies: Appetite - Normal - LOSS OF APPETITE - Pain Is Patient Pain Free?: No Pain Location: back - CHRONIC BACK PAIN, Pain Level: 3/10 - DIFFICULTY WALKING ETC PAIN RADIATES DOWN BOTH LEGS. NEUROPATHY IN LOWER LEGS AND BOTH FEET. Risk Factor Assessment - Chief Complaint Chief Complaint: pATIENT IS A VERY PLEASANT FEMALE WHO PRESENTS TO CR TODAY FOLLOWING RECENT NSTEMI AND PCI INTERVENTION. - Vital Signs Temperature: 98.7 F Respiratory Rate: 16 Pulse Ox: 99 Blood Pressure: 148/66 Nailbeds:: PINK - Pulse Pulse Rate: 76 Pulse Rhythm: Regular - Hypertension How long have you been treated?: SEVERAL YEARS, UNKNOWN BUT IN THE LAST 10 YEARS. 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 SHE HAS HAD ONE AGENCY COME IN AT PRESENT TIME. - Blood Cholesterol/Lipids Total Cholesterol (mg/dL) Goal = less than 200 mg/dL: 106 - 02/20/2019 HDL Cholesterol (mg/dL) Goal = less than 40 mg/dL: 42 LDL Cholesterol (mg/dL) Goal = less than 70 mg/dL: 35 Triglycerides (mg/dL) Goal = less than 150 mg/dL: 146 - Obesity Height: 5 ft 1 in Weight:: 153 lb Weight in Pounds: 153.0 lbs Weight Source: Estimated by Patient Body Mass Index (BMI): 28.9 Nutritional Referral for Obesity: Yes - Physical Inactivity Physical Inactivity: None - Risk Stratification Risk Guidelines: Lowest Risk: Risk Factor for Smoking, Risk Factor for Dyslipidemia, Moderate Risk: Risk Factor for Diabetes, Risk Factor for Obesity, Risk Factor for Hypertension, Risk Factor for Sedentary Lifestyle - For Smoking Smoking Risk Guidelines: Smoking Low Risk: None or quit greater than 6 months ago. Smoking Moderate Risk: Smoker or quit 6 months or less ago. Smoking High Risk: Smoker - For Dyslipidemia Dyslipidemia Risk Guidelines: Low Risk: Moderate Risk: High Risk: 15-25% fat 25.1-29% fat >/= 30% fat. <7% sat fat 7-9% sat fat >9% sat fat. <150 mg chol 150-299 mg chol >/= 300 mg chol. LDL <100 LDL 100-129 LDL >/= 130. Chol/HDL ratio <5.0 Chol/HDL ratio 5.0-6.0 Chol/HDL ratio >6.0. Triglycerides <100 Triglycerides 100-149 Triglycerides >/= 150 - For Diabetes Mellitus Diabetes Risk Guidelines: Diabetes Low Risk: HgA1c <6.5% and/or FB G <120. Diabetes Moderate Risk: HgA1c 6.6-7.9% and/or FBG 120-180. Diabetes High Risk: HgA1c >/= 8% and/or FBG >180 - For Obesity/Overweight Obesity/Overweight Risk Guidelines: Obesity Low Risk: BMI <25.0. Obesity Moderate Risk: BMI 25-29.9. Obesity High Risk: BMI >/= 30.0 - For Hypertension Hypertension Risk Guidelines: Hypertension Low Risk: Systolic <120 and Diastolic <80. Hypertension Moderate Risk: Systolic 120-139 and Diastolic 80-89. Hypertension High Risk: Systolic >/= 140 and Diastolic >/= 90 - For Sedentary Lifestyle Sedentary Lifestyle Risk Guidelines: Sedentary Lifestyle Low Risk: >/= 1,500 kcal/week. Sedentary Lifestyle Moderate Risk: 700-1,499 kcal/week. Sedentary Lifestyle High Risk: < 700 kcal/week - For Depression Depression Risk Guidelines: Depression Low Risk: Not clinically depressed. Depression Moderate Risk: Mildly depressed. Depression High Risk: Clinically depressed - Family History Family History: Family History (Last Updated 02/23/19 @ 08:28 by Lizet Prakash) Father CAD (coronary artery disease) Motivation - Motivation to Participate On a scale of 1 to 10, how prepared are you to commit to attending program?: 10 What do you see as barriers to successfully being able to complete the program?: CONFLICTS WITH PRESCHEDULED APPOINTMENTS ALREADY SCHEDULED FOR What do you see as the benefits of succesfully completing the program? In other words, what do you hope to get out of participating in the program?: GETTING MORE ENERGY, STRENGTH, ENDURANCE, AND ABILITY TO PERFORM ACTIVITY Are there issues you are dealing with that will interfere with completing the program?: CHRONIC BACK PAIN, LEG PAIN. Do you have a spouse or signficant other, family or friends who will help support you to complete the program?: YES
[2019-03-04 09:57] VITALS: BP 148/66; PULSE 76; RESP 16; TEMP 37.1; O2SAT 99; BMI 28.9
[2019-03-04 10:27] VITALS: BP 148/66
== END ==
PROVIDERS: Family Provider Family Medicine; PCP Family Medicine; Referring Provider Internal Medicine Cardiovascular Disease; Visit Provider Internal Medicine Cardiovascular Disease
DX: I25.10 Atherosclerotic heart disease of native coronary artery without angina pectoris (principal); I10 Essential (primary) hypertension; E78.5 Hyperlipidemia, unspecified; E11.9 Type 2 diabetes mellitus without complications; K21.9 Gastro-esophageal reflux disease without esophagitis

== ENCOUNTER 2019-03-26 11:30 | Outpatient (RCR) | payer MEDICARE, SELFPAY ==
[2019-03-04 09:57] VITALS: BMI 28.9
== END 2019-03-28 23:59 ==
LOC: CR 11:30
PROVIDERS: Family Provider Family Medicine; PCP Family Medicine; Referring Provider Internal Medicine Cardiovascular Disease; Visit Provider Internal Medicine Cardiovascular Disease
DX: I25.10 Atherosclerotic heart disease of native coronary artery without angina pectoris (principal); I10 Essential (primary) hypertension; E78.5 Hyperlipidemia, unspecified; I21.4 Non-ST elevation (NSTEMI) myocardial infarction; Z95.5 Presence of coronary angioplasty implant and graft
CPT/HCPCS: 93798

== ENCOUNTER 2019-04-21 13:00 | Outpatient (RCR) | payer MEDICARE, SELFPAY ==
[2019-03-12 12:14] VITALS: BMI 28.9
== END 2019-04-28 23:59 ==
LOC: DC 13:00
PROVIDERS: Family Provider Family Medicine; PCP Family Medicine; Visit Provider Internal Medicine Cardiovascular Disease
DX: E11.9 Type 2 diabetes mellitus without complications (principal); K21.9 Gastro-esophageal reflux disease without esophagitis; E78.5 Hyperlipidemia, unspecified; I10 Essential (primary) hypertension; I25.10 Atherosclerotic heart disease of native coronary artery without angina pectoris; Z71.3 Dietary counseling and surveillance
CPT/HCPCS: 97802; G0108

== ENCOUNTER 2019-04-28 11:30 | Outpatient (RCR) | payer MEDICARE, MEDICAID, SELFPAY ==
[2019-03-12 12:14] VITALS: BMI 28.9
--- NOTE | 2019-04-02 08:49 | CR.ITP_ITS ---
Exercise - 30-day Assessment - Visit Date of Eval: 04/02/19 - STARTED CR 03/10/2019 Session #:: 8 - Stages of Change Stages of Change:: Action - Physician Prescribed Exercise Modalities: Treadmill, Rower, Airdyne, NuStep Frequency (days/week): 3 Duration (Minutes):: 30-45 Intensity: 60-80% age predicted maximum heart rate reserve METs - Progression: 0.5-1.0 MET, RPE 11-14 WEEK: 3.5 Target Heart Rate:: 98-128 WITH MAX HR 126 - Hypertension Resting Blood Pressure:: 130/50 Peak Exercise Blood Pressure:: 180/72 Medication Changes:: No - Intervention Home Exercise/Activity Goal:: Moderate Exercise 30 min/day x 5 days/wk - Education Goals:: Warm-up, RPE LONNIE Scale, S/S, Safe Exercise, Self-Monitoring - Exercise Program Goals Exercise Program Goals: Aerobic Activity >30 min Nutrition - Initial Assessment - Program Goals Nutrition Program Goals: LDL <70. Total Cholesterol <200. HDL >45. Triglycerides <150. HgbA1C <7%. BMI <25 - Diabetes Do you monitor your blood sugar at home?: Yes Nutrition - 30-Day Assessment - Program Goals Nutrition Program Goals: LDL <70. Total Cholesterol <200. HDL >45. Trigly cerides <150. HgbA1C <7%. BMI <25 - Visit Date of Eval: 04/02/19 - Stages of Change Stages of Change:: Action - Lipids Has the patient seen the dietitian?: No - SCHEDULED 04/12/2019 @ 13:00 - Diabetes Diabetes:: Yes Insulin: Yes - Weight Management Weight:: 155 lb - Intervention Referral to dietitian:: Yes Referral to Diabetic Clinic:: Yes Will attend diet classes:: Yes - Education Attended class for:: Signs & symptoms of hypoglycemia, Signs & symptoms of hyperglycemia, Relate diabetes to coronary artery disease, Healthy eating Tobacco - Initial Assessment - Program Goals Tobacco Program Goals: Complete smoking cessation. Attend education classes. Improve Knowledge Test score - Learning Barriers Learning Barriers: Vision, Ready to Learn Tobacco - 30-Day Assessment - Program Goals Tobacco Program Goals: Complete smoking cessation. Attend education classes. Improve Knowledge Test score - Stage of Change Stages of Change:: Action - Learning Barriers Learning Barriers: Participates in education - Family Support Do you have family support?: Yes - Tobacco Use Tobacco Use: Non-smoker Do you use smokeless tobacco?: No - Intervention Smoking Cessation Referral:: No Individual Education/Counseling:: No Education Schedule Given:: Yes - Education Attended class for:: Coronary artery disease, Risk factors, Sexuality, Medical compliance, Cardiac A&P, Angina signs & symptoms Psychosocial - Initial Assess - Target Goals Target Goals: Assess presence or absence of depression. Using a valid screening tool, maximizes coping skills. Positive support system - Psychosocial Test Tool Used:: HANDS Depression Questionnaire - Assistive Devices Fall Risk Assessed:: Yes Psychosocial - 30-Day Assess - Target Goals Target Goals: Assess presence or absence of depression. Using a valid screening tool, maximizes coping skills. Positive support system - Stages of Change Stages of Change:: Action - Psychosocial Test Tool Used:: HANDS Depression Questionnaire - Intervention PS - Interventions: Yes Attend Stress Management Classes, No Referral to Mental Health, No Referral to [facility] Case Management, No Referral to Physician, No Uses Stress Management Skills - Education Attended classes for:: Coping techniques, Signs & symptoms of depression, Stress management, Relaxation techniques - Patient/Program Goal Preventative Medication(s):: Aspirin, Clopidogrel, Beta josh, Statin/lipid - Assistive Devices Assistive Devices:: None Fall Risk Assessed:: Yes Patient Health Questionnaire 30-Day Re-eval Assessment 1. Little interest or pleasure in doing things: Nearly every day 2. Feeling down, depressed, or hopeless: Several days 3. Trouble falling or staying asleep, or sleeping too much: Several days 4. Feeling tired or having little energy: More than half the days 5. Poor appetite or overeating: Nearly every day 6. Feeling bad about yourself -- or that you are a failure or have let yourself or your family down: Nearly every day 7. Trouble concentrating on things, such as reading the newspaper or watching television: Nearly every day 8. Moving or speaking so slowly that other people could have noticed. Or the opposite - being so fidgety or restless that you have been moving around a lot more than usual: Several days 9. Thoughts that you would be better off , or of hurting yourself in some way: Not at all How difficult have these problems made it for you to do your work, take care of things at home, or get along with other people?: Somewhat difficult - Patient cont to have elevated PHQ-9 Score and could benefit from counseling services. Phone numbers given to patient. Total Score: 17
[2019-04-02 08:54] VITALS: BP 130/50; BP 180/72
== END 2019-04-28 23:59 ==
LOC: CR 11:30
PROVIDERS: Family Provider Family Medicine; PCP Family Medicine; Referring Provider Internal Medicine Cardiovascular Disease; Visit Provider Internal Medicine Cardiovascular Disease
DX: I25.10 Atherosclerotic heart disease of native coronary artery without angina pectoris (principal); I10 Essential (primary) hypertension; E78.5 Hyperlipidemia, unspecified; I21.4 Non-ST elevation (NSTEMI) myocardial infarction; Z95.5 Presence of coronary angioplasty implant and graft
CPT/HCPCS: 93798

== ENCOUNTER 2019-05-27 08:00 | Outpatient (RCR) | payer MEDICARE, MEDICAID, SELFPAY ==
[2019-03-12 12:14] VITALS: BMI 28.9
== END 2019-05-29 23:59 ==
LOC: DC 08:00
PROVIDERS: Family Provider Family Medicine; PCP Family Medicine; Visit Provider Internal Medicine Cardiovascular Disease
DX: E11.9 Type 2 diabetes mellitus without complications (principal); K21.9 Gastro-esophageal reflux disease without esophagitis; E78.5 Hyperlipidemia, unspecified; I10 Essential (primary) hypertension; I25.10 Atherosclerotic heart disease of native coronary artery without angina pectoris; Z71.3 Dietary counseling and surveillance
CPT/HCPCS: 97803; G0108

== ENCOUNTER 2019-05-28 11:30 | Outpatient (RCR) | payer MEDICARE, MEDICAID, SELFPAY ==
[2019-03-12 12:14] VITALS: BMI 28.9
[2019-04-29 00:58] VITALS: BP 130/50; BP 180/72
--- NOTE | 2019-05-03 08:29 | CR.ITP_ITS ---
General Information - General Information Admitting Diagnosis: PCI with stenting - Education/Goals Barriers to Learning: None Cardiac Rehabilitation Goals: 1. Maintain the individual as the primary focus of care. 2. To improve the patient's quality of life. 3. Identification of cardiac risk factors and provide cardiac risk factor management. 4. Enhance the psychosocial status of the patient. 5. Reconditioning enough to allow the patient to resume customary activities. 6. Control symptoms of cardiac disease Scale for measuring improvement of personal goals: Enter appropriate number in Comments. 2 = Unchanged. 3 = Slightly Better. 4 = Moderate Improvement. 5 = Met my Goal Exercise - 60-Day Assessment - Visit Date of Eval: 05/03/19 Session #:: 23 - Stages of Change Stages of Change:: Action - Physician Prescribed Exercise Modalities: Treadmill, Airdyne, NuStep Frequency (days/week): 3 Duration (Minutes):: 30-45 Intensity: 60-80% age predicted maximum heart rate reserve METs - Progression: 0.5-1.0 MET, RPE 11-14 WEEK: 3.5 Target Heart Rate:: 98-128 Max HR 115 - Hypertension Resting Blood Pressure:: 142/50 Peak Exercise Blood Pressure:: 172/84 Medication Changes:: Yes - Coreg increased to 25 mg BID - Intervention Home Exercise/Activity Goal:: Sitting Time <3 hrs/day - Education Goals:: Warm-up, RPE LONNIE Scale, S/S, Safe Exercise, Self-Monitoring - Exercise Program Goals Exercise Program Goals: Aerobic Activity >30 min, B/P <130/80 Nutrition - Initial Assessment - Program Goals Nutrition Program Goals: LDL <70. Total Cholesterol <200. HDL >45. Triglycerides <150. HgbA1C <7%. BMI <25 - Diabetes Do you monitor your blood sugar at home?: Yes Nutrition - 60-Day Assessment - Program Goals Nutrition Program Goals: LDL <70. Total Cholesterol <200. HDL >45. Triglycerides <150. HgbA1C <7%. BMI <25 - Visit Date of Eval: 05/03/19 - Stages of Change Stages of Change:: Action - Diabetes Diabetes:: Yes Insulin: Yes - Weight Management Weight:: 71.894 kg - Intervention Referral to dietitian:: Yes Referral to Diabetic Clinic:: Yes Will attend diet classes:: Yes - Education Attended class for:: Signs & symptoms of hypoglycemia, Signs & symptoms of hyperglycemia, Relate diabetes to coronary artery disease, Healthy eating Tobacco - Initial Assessment - Program Goals Tobacco Program Goals: Complete smoking cessation. Attend education classes. Improve Knowledge Test score - Learning Barriers Learning Barriers: Vision, Ready to Learn Tobacco - 60-Day Assessment - Program Goals Tobacco Program Goals: Complete smoking cessation. Attend education classes. Improve Knowledge Test score - Stage of Change Stages of Change:: Action - Learning Barriers Learning Barriers: Participates in education - Family Support Do you have family support?: Yes - Tobacco Use Tobacco Use: Non-smoker Do you use smokeless tobacco?: No - Intervention Smoking Cessation Referral:: No Individual Education/Counseling:: No Education Schedule Given:: Yes - Education Attended class for:: Treating Heart Disease, How The Heart Works, What it means to have Heart Disease, How Coronary Artery Disease is Diagnosed, Heart Procedures, What Heart Medications Do, Risk Factors & Modifications, Living an Active Life, Nutrition, Emotions & Heart Disease, Stress Management & Relaxation, Sleep Disorders & Heart Disease Psychosocial - Initial Assess - Target Goals Target Goals: Assess presence or absence of depression. Using a valid screening tool, maximizes coping skills. Positive support system - Psychosocial Test Tool Used:: HANDS Depression Questionnaire - Assistive Devices Fall Risk Assessed:: Yes Psychosocial - 60-Day Assess - Target Goals Target Goals: Assess presence or absence of depression. Using a valid screening tool, maximizes coping skills. Positive support system - Stages of Change Stages of Change:: Action - Psychosocial Test Tool Used:: HANDS Depression Questionnaire - Intervention PS - Interventions: Yes Attend Stress Management Classes, Yes Uses Stress Management Skills, No Referral to Mental Health, No Referral to [facility] Case Management, No Referral to Physician - Education Attended classes for:: Coping techniques, Signs & symptoms of depression, Stress management, Relaxation techniques - Assistive Devices Assistive Devices:: Walker Fall Risk Assessed:: Yes Patient Health Questionnaire 60-Day Re-eval Assessment 1. Little interest or pleasure in doing things: Nearly every day 2. Feeling down, depressed, or hopeless: Several days 3. Trouble falling or staying asleep, or sleeping too much: Several days 4. Feeling tired or having little energy: More than half the days 5. Poor appetite or overeating: Nearly every day 6. Feeling bad about yourself -- or that you are a failure or have let yourself or your family down: Nearly every day 7. Trouble concentrating on things, such as reading the newspaper or watching television: Several days 8. Moving or speaking so slowly that other people could have noticed. Or the opposite - being so fidgety or restless that you have been moving around a lot more than usual: Not at all 9. Thoughts that you would be better off , or of hurting yourself in some way: Not at all How difficult have these problems made it for you to do your work, take care of things at home, or get along with other people?: Somewhat difficult Total Score: 14 Self-Efficacy 60-Day Re-eval Assessment We would like to know how confident you are in doing certain activities. Please select your confidence level for:: Select your confidence level for the following using the scale 1-10 where 1 is not at all confident and 10 is totally confident. Your score is the average of all 6 responses. Fatigue: How confident are you that you can keep the fatigue caused by your disease from interfering with the things you want to do? Select Number: 1 Physical Discomfort or Pain: How confident are you that you can keep the physical discomfort or pain of your disease from interfering with the things you want to do? Select Number: 1 Emotional Distress: How confident are you that you can keep the emotional distress caused by your disease from interfering with the things you want to do? Select Number: 5 Other Symptoms or Health Problems: How confident are you that you can keep other symptoms or health problems from interfering with the things you want to do? Select Number: 1 Different Tasks and Activities: How confident are you that you can do the different tasks and activities needed to manage your health condition so as to reduce your need to see a doctor? Select Number: 5 Medication: How confident are you that you can do things other than just taking medication to reduce how much your illness affects your everyday life? Select Number: 1 Total Score:: 2
[2019-05-03 08:40] VITALS: BP 142/50; BP 172/84
== END 2019-05-29 23:59 ==
LOC: CR 11:30
PROVIDERS: Family Provider Family Medicine; PCP Family Medicine; Referring Provider Internal Medicine Cardiovascular Disease; Visit Provider Internal Medicine Cardiovascular Disease
DX: I25.10 Atherosclerotic heart disease of native coronary artery without angina pectoris (principal); I10 Essential (primary) hypertension; E78.5 Hyperlipidemia, unspecified; I21.4 Non-ST elevation (NSTEMI) myocardial infarction; Z95.5 Presence of coronary angioplasty implant and graft
CPT/HCPCS: 93798

== ENCOUNTER 2019-06-14 11:30 | Outpatient (RCR) | payer MEDICARE, MEDICAID, SELFPAY ==
[2019-03-12 12:14] VITALS: BMI 28.9
[2019-05-30 00:48] VITALS: BP 142/50; BP 172/84
--- NOTE | 2019-06-04 08:49 | PCM.CR.ITP ---
Exercise - 90-Day Assessment - Visit Date of Eval: 06/04/19 Session #:: 33 - Stages of Change Stages of Change:: Action - Physician Prescribed Exercise Modalities: Treadmill, Airdyne, NuStep, SciFit Frequency (days/week): 3 Duration (Minutes):: 30-45 Intensity: 60-80% age predicted maximum heart rate reserve METs - Progression: 0.5-1.0 MET, RPE 11-14 WEEK: 3.5 LIMITED BY OTHER PHYSICAL LIMITATIONS Target Heart Rate:: 98-128 W/MAX HR 103 - Hypertension Resting Blood Pressure:: 126/64 - Peak Exercise Blood Pressure:: 180/68 Medication Changes:: Yes - STARTED ON ZOLOFT COREG & LOSARTAN INCREASED - Intervention Home Exercise/Activity Goal:: Moderate Exercise 30 min/day x 5 days/wk Nutrition - Initial Assessment - Program Goals Nutrition Program Goals: LDL <70. Total Cholesterol <200. HDL >45. Triglycerides <150. HgbA1C <7%. BMI <25 - Diabetes Do you monitor your blood sugar at home?: Yes Nutrition - 90-Day Assessment - Program Goals Nutrition Program Goals: LDL <70. Total Cholesterol <200. HDL >45. Triglycerides <150. HgbA1C <7%. BMI <25 - Visit Date of Eval: 06/04/19 - Stages of Change Stages of Change:: Action - Lipids Has the patient seen the dietitian?: Yes - 05/27/2019 - Diabetes Diabetes:: Yes Fasting blood glucose:: 149 - 149-208 RESTING Insulin: Yes Non-Insulin Dependent?: Yes - Weight Management Weight:: 158 lb 8 oz - STABLE WITHIN +/- 1 POUND - Intervention Referral to dietitian:: No Referral to Diabetic Clinic:: No Will attend diet classes:: Yes - Education Attended class for:: Signs & symptoms of hypoglycemia, Signs & symptoms of hyperglycemia, Relate diabetes to coronary artery disease, Healthy eating Tobacco - Initial Assessment - Program Goals Tobacco Program Goals: Complete smoking cessation. Attend education classes. Improve Knowledge Test score - Learning Barriers Learning Barriers: Vision, Ready to Learn Tobacco - 90-Day Assessment - Program Goals Tobacco Program Goals: Complete smoking cessation. Attend education classes. Improve Knowledge Test score - Stage of Change Stages of Change:: Action - Learning Barriers Learning Barriers: Participates in education, Change in behavior - Family Support Do you have family support?: Yes - Tobacco Use Tobacco Use: Non-smoker Do you use smokeless tobacco?: No - Intervention Smoking Cessation Referral:: No Education Schedule Given:: Yes - Education Attended class for:: Treating Heart Disease, How The Heart Works, What it means to have Heart Disease, How Coronary Artery Disease is Diagnosed, Heart Procedures, What Heart Medications Do, Risk Factors & Modifications, Living an Active Life, Nutrition, Emotions & Heart Disease, Stress Management & Relaxation, Sleep Disorders & Heart Disease Psychosocial - Initial Assess - Target Goals Target Goals: Assess presence or absence of depression. Using a valid screening tool, maximizes coping skills. Positive support system - Psychosocial Test Tool Used:: HANDS Depression Questionnaire - Assistive Devices Fall Risk Assessed:: Yes Patient Health Questionnaire 90-Day Re-eval Assessment 1. Little interest or pleasure in doing things: More than half the days 2. Feeling down, depressed, or hopeless: Not at all 3. Trouble falling or staying asleep, or sleeping too much: Not at all 4. Feeling tired or having little energy: Several days 5. Poor appetite or overeating: More than half the days 6. Feeling bad about yourself -- or that you are a failure or have let yourself or your family down: More than half the days 7. Trouble concentrating on things, such as reading the newspaper or watching television: Several days 8. Moving or speaking so slowly that other people could have noticed. Or the opposite - being so fidgety or restless that you have been moving around a lot more than usual: Not at all 9. Thoughts that you would be better off , or of hurting yourself in some way: Not at all How difficult have these problems made it for you to do your work, take care of things at home, or get along with other people?: Somewhat difficult Total Score: 8 Self-Efficacy 90-Day Re-eval Assessment We would like to know how confident you are in doing certain activities. Please select your confidence level for:: Select your confidence level for the following using the scale 1-10 where 1 is not at all confident and 10 is totally confident. Your score is the average of all 6 responses. Fatigue: How confident are you that you can keep the fatigue caused by your disease from interfering with the things you want to do? Select Number: 3 Physical Discomfort or Pain: How confident are you that you can keep the physical discomfort or pain of your disease from interfering with the things you want to do? Select Number: 4 Emotional Distress: How confident are you that you can keep the emotional distress caused by your disease from interfering with the things you want to do? Select Number: 6 Other Symptoms or Health Problems: How confident are you that you can keep other symptoms or health problems from interfering with the things you want to do? Select Number: 5 Different Tasks and Activities: How confident are you that you can do the different tasks and activities needed to manage your health condition so as to reduce your need to see a doctor? Select Number: 8 Medication: How confident are you that you can do things other than just taking medication to reduce how much your illness affects your everyday life? Select Number: 5 Total Score:: 5
[2019-06-04 08:57] VITALS: BP 126/64; BP 180/68
== END 2019-06-28 23:59 ==
LOC: CR 11:30
PROVIDERS: Family Provider Family Medicine; PCP Family Medicine; Referring Provider Internal Medicine Cardiovascular Disease; Visit Provider Internal Medicine Cardiovascular Disease
DX: I25.10 Atherosclerotic heart disease of native coronary artery without angina pectoris (principal); I10 Essential (primary) hypertension; E78.5 Hyperlipidemia, unspecified; I21.4 Non-ST elevation (NSTEMI) myocardial infarction; Z95.5 Presence of coronary angioplasty implant and graft
CPT/HCPCS: 93798

== ENCOUNTER 2019-06-16 09:04 | Outpatient (RCR) | payer MEDICARE, MEDICAID, SELFPAY ==
[2019-03-12 12:14] VITALS: BMI 28.9
== END 2019-06-28 23:59 ==
LOC: DC 09:04
PROVIDERS: Family Provider Family Medicine; PCP Family Medicine; Visit Provider Internal Medicine Cardiovascular Disease
DX: E11.9 Type 2 diabetes mellitus without complications (principal); K21.9 Gastro-esophageal reflux disease without esophagitis; E78.5 Hyperlipidemia, unspecified; I10 Essential (primary) hypertension; I25.10 Atherosclerotic heart disease of native coronary artery without angina pectoris; Z71.3 Dietary counseling and surveillance
CPT/HCPCS: 97803

== ENCOUNTER → 2019-07-12 11:51 | Outpatient (CLI) | payer MEDICARE, SELFPAY ==
[2019-07-12 12:51] LABS: Absolute Lymphocyte Count 1.51 X10^3/uL (0.83-4.51); Basophil# 0.05 X10^3/uL; Basophil% 0.8 % (0-1); Eosinophil# 0.23 X10^3/uL; Eosinophils% 3.6 % (0-5); Hematocrit 34.7 % (37-47); Lymphocyte # 1.51 X10^3/ul (4.0); Lymphocyte % 23.4 % (19-41); Mean Corp Hgb Conc 31.7 g/dL (32-36); Mean Corpuscular Hgb 27.6 pg (27.0-32.0); Mean Corpuscular Volume 87.2 fL (81-99); Monocyte# 0.66 X10^3/uL; Monocyte% 10.2 % (0-10); NRBC Flagged by Analyzer 0 % (0-5); Neutrophil # 3.98 X10^3/uL (2.7-7.7); Neutrophil % 61.7 % (47-70); Platelet Count 135 K/mm3 (150-450); RBC Distribution Width CV 13.4 % (11.6-14.6); RBC Distribution Width SD 42.5 fl (35.1-43.9); Red Blood Count 3.98 M/mm3 (4.2-5.4); White Blood Count 6.5 K/mm3 (4.4-11.0)
== END ==
PROVIDERS: Family Provider Family Medicine; PCP Family Medicine; Referring Provider Physician Assistant Medical; Visit Provider Physician Assistant Medical
DX: D64.9 Anemia, unspecified (principal); R09.89 Other specified symptoms and signs involving the circulatory and respiratory systems
CPT/HCPCS: 36415; 82274; 85025

== ENCOUNTER → 2019-07-15 09:02 | Outpatient (CLI) | payer MEDICARE, MEDICAID, SELFPAY ==
--- NOTE | 2019-07-15 09:04 | CDU_ITS ---
Reason For Study: Right carotid bruit Rt. Velocities/BP Lt. Velocities/BP Prox CCA 117.4/15.2 cm/sec. Prox CCA 130.2/24.3 cm/sec. Mid CCA 97.4/17 cm/sec. Mid CCA 115.6/22.5 cm/sec. Dist CCA 80.2/11.4 cm/sec. Dist CCA 99.2/18.8 cm/sec. Prox ICA 110.1/20.6 cm/sec. Prox ICA 77.3/15.2 cm/sec. Mid ICA 76.5/17.6 cm/sec. Mid ICA 95.5/22.5 cm/sec. Dist ICA 81.4/23.7 cm/sec. Dist ICA 84.6/26.1 cm/sec. Rt. ICA/CCA = 1.1. Lt. ICA/CCA = 0.8. Prox ECA 80.2/5.3 cm/sec. Prox ECA 90/6 cm/sec. Rt. Vert. 43.3/11.4 cm/sec. Lt. Vert. 37.7/8 cm/sec. Right Extracranial There is homogeneous, smooth atherosclerotic plaque noted in the right common carotid artery. There is heterogeneous, irregular atherosclerotic plaque noted in the right internal carotid artery. There is intimal thickening but no significant atherosclerotic plaque noted in the right external carotid artery. Antegrade flow is noted in the right vertebral artery. Left Extracranial There is homogeneous, smooth atherosclerotic plaque noted in the left common carotid artery. There is heterogeneous, smooth atherosclerotic plaque noted in the left internal carotid artery. There is intimal thickening but no significant atherosclerotic plaque noted in the left external carotid artery. Antegrade flow is noted in the left vertebral artery. Procedure Carotid Duplex [id number]. Exam performed in department. 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
== END ==
PROVIDERS: Family Provider Family Medicine; PCP Family Medicine; Referring Provider Physician Assistant Medical; Visit Provider Physician Assistant Medical
DX: R09.89 Other specified symptoms and signs involving the circulatory and respiratory systems (principal)
CPT/HCPCS: 93880

== ENCOUNTER → 2020-04-27 13:08 | Outpatient (CLI) | payer MEDICARE, SELFPAY ==
[2020-01-12 14:02] VITALS: BMI 30.2
--- NOTE | 2020-04-27 13:15 | BI_ITS ---
MAMMOGRAPHY - BILATERAL SCREENING REASON FOR EXAM: Female, 70 years old. Routine annual screening examination. PERTINENT HISTORY: Aunt with breast cancer. TECHNIQUE: Digital bilateral breast jermaine (3D mammographic acquisition) in the CC and MLO projections. 2-D mediolateral oblique (MLO) and craniocaudad (CC) views of both breasts were obtained. CAD: Full Field Digital Mammography with Computer Added Detection was performed. COMPARISON: None. Baseline examination. FINDINGS: Breast Composition: There are scattered areas of fibroglandular density. There are no dominant masses or suspicious calcifications. No other significant abnormalities are identified. BI/SCREEN MAMM (CAD) W/JERMAINE BILAT IMPRESSION: Negative screening mammogram. Yearly followup mammogram recommended. (A) ASSESSMENT CATEGORY: BIRADS Category 1: Negative. A letter regarding these results will be sent to the patient by the facility within 30 days. Approximately 10% of breast cancers are not detected by mammography. A normal mammogram should not delay biopsy of a clinically suspicious abnormality. [id number] Electronically Signed: Jemal West, at 15:15 EDT , Service support ,
--- NOTE | 2020-04-27 13:18 | BD_ITS ---
STUDY: DUAL ENERGY X-RAY ABSORPTIOMETRY / DXA REASON FOR EXAM: Female, 70 years old. 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 COMPARISON: None. FINDINGS: Lumbar Spine (L1-L4): g/cm2 (1.133) / T-score (-0.3) / Z-score (1.4) Findings are suggestive of normal bone density with a low fracture risk. Left Femur Total: g/cm2 (0.877) / T-score (-1.0) / Z-score (0.4) Left Femoral Neck: g/cm2 (0.814) / T-score (-1.6) / Z-score (0.1) Right Femur Total: g/cm2 (0.922) / T-score (0.7) / Z-score (0.8) Right Femoral Neck: g/cm2 (0.897) / T-score (-1.0) / Z-score (0.7) BD/Dexa Bone Density Study IMPRESSION: The patient is considered osteopenic as outlined below according to World Martin Organization (WHO) criteria with a moderate fracture risk. Reference Information: The T-score is the number of standard deviations above or below the standard which is normal for young adults at their peak bone mineral density. The World Health Organization (WHO) interprets the T-scores as follows: Above -1 Normal bone density Between -1 and -2.5 Osteopenia Equal to / or below -2.5 Osteoporosis As a practical clinical guideline, osteopenia may be graded as follows: Mild -1 through -1.5 Moderate -1.6 through -2.0 Severe -2.1 through -2.4 The Z-score is the number of standard deviations above or below age-matched controls. A Z-score of less than -1.5 would be considered abnormal. References: 1. NIH Osteoporosis and Related Bone Diseases http://www.osteo.org 2. International Society for Clinical Densitometry http://www.iscd.org 3. National Osteoporosis Foundation http://www.nof.org Electronically Signed: Jemal West, at 15:31 EDT , Service support ,
== END ==
PROVIDERS: PCP Family Medicine
DX: Z12.31 Encounter for screening mammogram for malignant neoplasm of breast (principal); Z78.0 Asymptomatic menopausal state
CPT/HCPCS: 77063; 77067; 77080

== ENCOUNTER → 2021-09-10 | Outpatient (CLI) | payer MEDICARE, OTHER, SELFPAY | END | disposition home or self-care (01) | PROVIDERS: PCP Family Medicine; Visit Provider Physician Assistant Surgical | DX: Z11.52 Encounter for screening for COVID-19 (principal) | CPT/HCPCS: 87635; U0005; U0003 ==